=== PATIENT | male | born 1950 | race Caucasian/White ===

== ENCOUNTER → 2021-08-11 14:21 | Outpatient (CLI) | payer MEDICARE, SELFPAY ==
--- NOTE | ~2021-08-11 | MR_ITS ---
EXAMINATION: MR lumbar spine wo con DATE: 08/11/2021 15:03 INDICATION: Chronic lumbar radiculopathy. Low back pain. TECHNIQUE: Magnetic resonance imaging (MRI) of the lumbar spine was performed without intravenous con trast. Sequences included sagittal T2-weighted FSE, sagittal T2-weighted FS FSE, sagittal T1-weighted FSE, and axial T2-weighted FSE. COMPARISON: None FINDINGS: There is 6 degrees dextrocurvature of lumbar spine. Vertebral body heights are normal. Ther e is mildly decreased disc height at L3-L4 and L5-S1. The distal spinal cord signal intensity is norm al. The conus medullaris is at L1. There is a 2.6 cm cyst in right kidney. There is a 3.3 cm fusiform infrarenal aortic aneurysm. The following disc levels are specifically discussed: L1-L2: The disc does not extend beyond the endplate margin. There is no facet joint osteoarthritis. T here is no neural foraminal stenosis. There is no central canal stenosis. L2-L3: The disc is mildly bulging. There is no facet joint osteoarthritis. There is mild left neural foraminal stenosis. There is mild central canal stenosis. L3-L4: The disc is bulging with superimposed left subarticular and foraminal zone extrusion with mass effect on left L4 nerve root in left lateral recess. There is severe bilateral facet joint osteoarth ritis. There is mild right and moderate left neural foraminal stenosis. There is mild central canal s tenosis. There is moderate stenosis of left lateral recess. L4-L5: The disc is bulging and has an annular fissure. There is severe bilateral facet joint osteoart hritis. There is mild right and moderate left neural foraminal stenosis. There is mild central canal stenosis. L5-S1: The disc is bulging and has an annular fissure. There is moderate bilateral facet joint osteoa rthritis. There is moderate bilateral neural foraminal stenosis. There is mild central canal stenosis . IMPRESSION: 1. Moderate lumbar spondylosis. Of note, an extrusion at L3-L4 exerts mass effect on left L4 nerve ro ot. 2. 3.3 cm fusiform infrarenal aortic aneurysm. Reviewed, dictated and finalized at location A. [employer] IMPRESSION: 1. Moderate lumbar spondylosis. Of note, an extrusion at L3-L4 exerts mass effe ct on left L4 nerve root. 2. 3.3 cm fusiform infrarenal aortic aneurysm.
== END ==
PROVIDERS: PCP Internal Medicine
DX: M54.16 Radiculopathy, lumbar region (principal); G89.4 Chronic pain syndrome; M51.9 Unspecified thoracic, thoracolumbar and lumbosacral intervertebral disc disorder; M47.816 Spondylosis without myelopathy or radiculopathy, lumbar region; I71.9 Aortic aneurysm of unspecified site, without rupture
CPT/HCPCS: 72148

== ENCOUNTER 2022-01-14 11:18 | Emergency (ER) | payer MEDICARE, SELFPAY ==
[2022-01-14] VITALS (13 sets, daily range): BP systolic 88–116; BP diastolic 61–82; PULSE 59–71; RESP 12–22; TEMP 36.6; O2SAT 83–98
--- NOTE | 2022-01-14 11:19 | ECG_ITS ---
Measurements Intervals [place] Rate: 65 P: -8 AR: 146 QRS: -46 QRSD: 88 T: 29 QT: 411 QTc: 428 Interpretive Statements SINUS RHYTHM WITH OCCASIONAL VENTRICULAR PREMATURE COMPLEXES LEFT AXIS DEVIATION NONSPECIFIC T-WAVE ABNORMALITY ABNORMAL ECG Electronically Signed On 01-14-2022 15:57:23 CDT by Inocencio Soliman M.D.
[2022-01-14 11:39] LABS: Basophils Absolute Auto 0.1 K/mm3 (0.0-0.1); Eosinophils Absolute Auto 0.6 K/mm3 (0-0.3); Eosinophils Percent Auto 5.1 % (0-4.4); Hematocrit 42.6 % (42.0-52.0); Hemoglobin 14.2 g/dL (14.0-18.0); Immature Granulocyte Absolute 0.05 K/mm3 (0.00-0.031); Immature Granulocyte Percent A 0.5 % (0-0.5); Lymphocytes Percent Auto 24.4 % (18.3-44.2); Mean Corpuscular HGB Conc 33.3 g/dl (32-36); Mean Corpuscular Hemoglobin 34.6 pg (26-34); Mean Corpuscular Volume 103.9 fl (80-100); Mean Platelet Volume 11.3 fl (7.4-10.4); Monocytes Absolute Auto 0.6 K/mm3 (0.1-0.6); Monocytes Percent Auto 5.2 % (2.6-8.5); Neutrophils Absolute Auto 7.1 K/mm3 (1.3-6.7); Neutrophils Percent Auto 63.8 % (45.5-73.1); Platelet Count Result 219 k/mm3 (150-375); Red Cell Distribution Width 13.6 % (11.5-14.5); White Blood Count 11.1 K/mm3 (4.5-10.0)
[2022-01-14 11:50] LABS: Alanine Aminotransferase 10 U/L (4-50); Albumin Level 4.2 g/dL (3.5-5.1); Alkaline Phosphatase 47 U/L (38-126); Anion Gap 9 mmol/L (8-16); Aspartate Amino Transferase 28 U/L (17-59); Bilirubin,Total 0.6 mg/dL (0.2-1.3); Blood Urea Nitrogen 17 mg/dL (9-20); Calcium 8.2 mg/dL (8.4-10.2); Carbon Dioxide 24 mmol/L (22-30); Chloride 102 mmol/L (98-107); Estimated CRCL calculation 48 ml/min; Estimated Glomerular Filt Rate 55; Glucose 285 mg/dL (65-110); Potassium 4.2 mmol/L (3.4-5.0); Sodium 135 mmol/L (137-145)
--- NOTE | 2022-01-14 12:31 | ED.GENADULT ---
HPI - General Adult General Chief complaint: Syncope Stated complaint: syncopal events Time Seen by Provider: 01/14/22 11:58 Source: patient and RN notes reviewed Mode of arrival: wheelchair Limitations: no limitations History of Present Illness HPI narrative: Patient is 71 years old white male brought to the emergency room from the gastroenterology office because of near syncope. Patient complaining of diarrhea since March 04, 2021 on average 1-2 large watery stool a day. Patient was seen by his family physician numerous of time for the same problem without specific diagnosis. Patient reports having low blood pressure, systolic less than 90, diastolic less than 60 for over 2 years without specific diagnosis. Patient reports getting feeling of dizziness, lightheadedness and possible going to pass out off and on for the last 2 years mainly on standing or when he gets up from sitting position. Today in the gastroenterology office got up to go to the nurse and fell like he was going to pass out. Patient denies any chest pain, shortness of breath, nausea, vomiting, back pain, headache. Patient reports what happened today exactly what been going on off and on for the last 2 years currently his main complaint is the diarrhea. When I saw the patient in the room his blood pressure was 88/65, at the end of my examination was 102/67. Patient is telling me that 102/67 consider high for him Related Data Home Medications Medication Instructions Recorded Confirmed amitriptyline 10 mg tablet 10 mg PO QHS 06/05/21 07/17/21 aspirin 81 mg tablet,delayed 81 mg PO DAILY 06/05/21 07/17/21 release clonazepam 1 mg tablet 2 mg PO DAILY tablet 06/05/21 07/17/21 coenzyme Q10 30 mg capsule 30 mg PO DAILY 06/05/21 07/17/21 folic acid-vit B6-vit B12 2.5 1 tablet PO DAILY 06/05/21 07/17/21 mg-25 mg-2 mg tablet glyburide 2.5 mg-metformin 500 mg 1 tablet PO BID 06/05/21 07/17/21 tablet oxycodone-acetaminophen 10 mg-325 6 tablet PO Q4-6H tablet 06/05/21 07/17/21 mg tablet simvastatin 40 mg tablet 40 mg PO DAILY 06/05/21 07/17/21 methadone 10 mg tablet 20 mg PO Q12H tablet 06/20/21 07/17/21 Allergies Allergy/AdvReac Type Severity Reaction Status Date / Time midazolam Allergy Severe Hives / Verified 01/14/22 11:31 Red Face Review of Systems Review of Systems: CONSTITUTIONAL: Denies fever, chills, or sweats. EYES: Denies visual changes, redness, or discharge. ENT: Denies rhinorrhea, congestion, sore throat, or otalgia. CARDIOVASCULAR: Denies chest pain, palpitations, or edema. RESPIRATORY: Denies cough or dyspnea. GASTROINTESTINAL: Denies abdominal pain, nausea, vomiting, or diarrhea. GENITOURINARY: Denies dysuria or hematuria. SKIN: Denies rash or itching. MUSCULOSKELETAL: Denies back pain, joint pain, or myalgia. NEUROLOGIC: Denies headache, numbness, or weakness. PSYCHIATRIC: Denies anxiety or depression. PMFSH Past Medical History Medical History Tobacco abuse Social History Social History Smoking status: Current every day smoker Tobacco type: cigarettes Second hand tobacco smoke exposure: Yes Exam Narrative: General appearance: Well-developed, well-nourished Skin: Normal color Head: Normocephalic, nontraumatic Eyes: Clear conjunctiva ENT: Oropharynx normal, ears normal, nose normal Neck: Supple, nontender Chest and respiratory: Airway patent, no respiratory distress, no accessory muscle use Heart: Regular rate/rhythm Abdomen: Soft, nontender, no organomegaly, quiet bowel sounds Vascular: Normal peripheral pulses, normal capillary refill. Musculoskeletal: Normal range of motion, nontender back Neurologic: Alert and oriented ?3, NUT SHELLER is normal as tested, no gross motor deficit
[2022-01-14] MEDS: SODIUM CHLORIDE 0.9% IV 1,000 ML 999 ML IV CONT (12:37)
== END 2022-01-14 14:38 | disposition home or self-care (01) ==
PROVIDERS: General Practice; Emergency Provider Emergency Medicine; PCP Internal Medicine
DX: I95.1 Orthostatic hypotension (principal); F17.210 Nicotine dependence, cigarettes, uncomplicated; Z79.82 Long term (current) use of aspirin; I49.3 Ventricular premature depolarization
CPT/HCPCS: 36415; 80053; 85025; 93005; 96360; 99284; J7030

== ENCOUNTER 2022-03-30 20:30 | Inpatient (IN) | payer MEDICARE, SELFPAY ==
--- NOTE | ~2022-03-30 | NM_ITS ---
EXAMINATION: NM mally stress w perfusion DATE: 04/01/2022 13:26 INDICATION: Chest pain TECHNIQUE: Rest images were obtained following intravenous administration of 10.1 mCi Tc99m tetrofosm in (Myoview). The patient was infused intravenously with Lexiscan (Regadenoson). Then, 22.1 mCi Tc99m tetrofosmin (Myoview) was administered intravenously, and stress images were obtained. Data was christina nstructed into short axis and horizontal and vertical long axis SPECT images. Gated SPECT images were also obtained. COMPARISON: None. FINDINGS: There is no definite reversible or fixed perfusion abnormality to suggest ischemia or infar ction. There is normal left ventricular chamber size and wall motion with borderline left ventricula r ejection fraction measuring 44%. IMPRESSION: 1. Normal myocardial perfusion at rest and during stress. 2. Borderline left ventricular ejection fraction measuring 44%. Reviewed, dictated and finalized at location A.
--- NOTE | ~2022-03-30 | CT_ITS ---
EXAMINATION: CTA chest abdomen DATE: 03/30/2022 21:44 INDICATION: R/O Dissection . TECHNIQUE: Computed tomography (CT) of the chest and abdomen was performed in the angiographic phase, with 100 mL Omnipaque-300 intravenous contrast. 3-D post processed images were created by the techno logist on a separate workstation. Automated exposure control and iterative reconstruction technique w ere employed. The dose-length product was 438.41 mGy-cm. COMPARISON: CT abdomen and pelvis 11/03/2013. FINDINGS: Thoracic aorta: Moderate arch calcification. No significant dilation or dissection.. Lung parenchyma and airways: Dependent right basilar ground glass opacities, likely representing atel ectasis. Mild emphysematous change. Thoracic inlet, axillae and chest wall: No thyroid or soft tissue mass. No axillary lymphadenopathy. Mediastinum: No mass or lymphadenopathy. Heart and pericardium: Normal heart size. No pericardial effusion. Coronary artery calcifications: Moderate. Pleura: No effusion or mass. Thoracic bones: No acute osseous finding in the chest. ABDOMEN/PELVIS: Liver: Somewhat heterogeneous, with wedge-shaped areas of hyperenhancement likely transient arterial differences. Intrahepatic biliary duct dilation. Intrabiliary gas predominantly in the left lobe. Biliary/Gallbladder: Mildly dilated, with mild wall hyperemia. No stones. 13 mm common bile duct, wit h mucosal enhancement. Pancreas: Atrophic, without mass or duct dilation. Spleen: Normal. Adrenals:Bilateral adrenal adenomas. Kidneys: Simple left renal cysts. Bilateral subcentimeter hypodensities that are too small to charact erize but also likely represent cysts. No suspicious mass or hydronephrosis. GI tract: No small or large bowel dilation. Mesentery/Peritoneum: No ascites, mass, or free air. Retroperitoneum: No mass. Atherosclerotic abdominal aortic and/or arterial calcifications, with moder ate calcifications at the origins of all major abdominal aortic branch vessels. Fusiform dilation of the aorta measuring up to 3.9 cm in maximum transverse diameter. Intramural thrombus. Dilated common iliac arteries measuring 1.9 cm on the left and 1.9 cm on the right. Soft Tissues: Soft tissues and body wall unremarkable. Abdominopelvic bones: No acute osseous finding in the abdomen/pelvis. IMPRESSION: No evidence dissection. Intra-/extrahepatic biliary duct dilation, pneumobilia, with gallbladder hydr ops, and biliary wall hyperemia which may represent ascending cholangitis in the appropriate clinical context. No obstructing biliary stone or mass detected. 3.9 cm abdominal aortic aneurysm, consider f ollow-up in 2 years to evaluate for size change. Reviewed, dictated and finalized at location K. IMPRESSION: No evidence dissection. Intra-/extrahepatic biliary duct dilation, pneumobilia, with gallbladder hydrops, and biliary wall hyperemia which may represent ascen ding cholangitis in the appropriate clinical context. No obstructing biliary st one or mass detected. 3.9 cm abdominal aortic aneurysm, consider follow-up in 2 years to evaluate for size change.
--- NOTE | ~2022-03-30 | XR_ITS ---
EXAMINATION: XR ERCP DATE: 04/03/2022 12:17 INDICATION: Choledocholithiasis TECHNIQUE: Four intraoperative fluoroscopic images obtained during endoscopic retrograde cholangiopan creatography (ERCP) are submitted for review. Total fluoroscopic time was 70.3 seconds. COMPARISON: None. FINDINGS: Fluoroscopic images demonstrate retrograde opacification of the common bile duct with mild extrahepatic biliary dilatation. IMPRESSION: 1. Mild biliary dilatation. Please refer to the ERCP procedure note for additional details. Reviewed, dictated and finalized at location F. IMPRESSION: 1. Mild biliary dilatation. Please refer to the ERCP procedure note for additio nal details.
--- NOTE | ~2022-03-30 | US_ITS ---
EXAMINATION: US abdomen limited DATE: 03/31/2022 16:08 INDICATION: Gallbladder and biliary distention TECHNIQUE: Multiple grayscale and Doppler ultrasound images of the abdomen were obtained. COMPARISON: CT from yesterday FINDINGS: Bowel gas obscures visualization of the pancreas. The liver is normal with normal echogenic ity and echotexture. No surface nodularity. Normal hepatopetal flow in the main portal vein. There is sludge in the gallbladder. The gallbladder is mildly distended. There is no pericholecystic fluid. T he dilated common bile duct measures 8 mm. Sonographic Palafox sign is positive. IMPRESSION: 1. Gallbladder sludge with gallbladder distention and positive sonographic Palafox sign without perich olecystic fluid. Findings are suggestive of cholecystitis. 2. Enlargement of the common bile duct of unclear etiology. Consider MRCP or ERCP. Reviewed, dictated and finalized at location A. IMPRESSION: 1. Gallbladder sludge with gallbladder distention and positive sonographic Murp hy sign without pericholecystic fluid. Findings are suggestive of cholecystitis . 2. Enlargement of the common bile duct of unclear etiology. Consider MRCP or ER CP.
--- NOTE | ~2022-03-30 | US_ITS ---
US renal BI 04/02/2022 10:51 Procedure: Realtime transabdominal ultrasound of the kidneys and bladder. Indication: Renal failure Comparison: No prior studies for comparison. Findings: Renal echotexture is normal bilaterally without hydronephrosis, contour deforming mass or r enal calculus. The right kidney measures 10.9 cm and left kidney measures 10.8 cm. There is a right r enal cyst measuring 3.9 cm. Bladder within normal limits. Impression: 1: Right renal cyst measuring 3.9 cm. Reviewed, dictated and finalized at location A. Impression: 1: Right renal cyst measuring 3.9 cm.
--- NOTE | ~2022-03-30 | MR_ITS ---
EXAMINATION: MR MRCP wo con/w 3D wo ind pp DATE: 04/02/2022 10:03 INDICATION: Dilated bile ducts on CT . Cholecystitis. TECHNIQUE: Magnetic resonance imaging (MRI) of the abdomen was performed without intravenous contrast . Sequences included coronal T2-weighted SS-FSE, coronal T2-weighted FS SS-FSE, coronal T2-weighted F S FIESTA, axial T2-weighted FS FIESTA, axial T2-weighted FIESTA, sagittal T2-weighted SS-FSE, axial T 1-weighted dual-echo FSPGR, axial T2-weighted SS-FSE, axial T1-weighted LAVA, axial T2-weighted STIR FSE. Thick-slab T2-weighted FRFSE-XL images were obtained for magnetic resonance cholangiopancreatogr aphy (MRCP). Rotating maximum intensity projection 3-D reconstructions of the volumetric data were cr eated by the technologist. COMPARISON: CT dated 03/25/2022 FINDINGS: Consolidation in the dependent right lower lobe with additional more linear bands of discoid atelecta sis/scarring in the dependent left lower lobe. Heart size is normal. No pericardial or pleural effusi on. There is prominent wall thickening of the sludge-filled gallbladder with prominent pericholecystic so ft tissue edema consistent with acute cholecystitis. There is mild dilation of the common bile duct w hich measures up to 8 mm in maximal diameter. There is a 3-4 mm gallstone in the distalmost common bi le duct. There are a couple additional similar sized filling defects in the proximal common bile duct which appear different positions on appearing sequences suggesting additional mobile small gallstone s. There is mild intrahepatic biliary ductal dilation with left hepatic lobe predominance. There is a lso diffuse periportal edema likely related to acute cholecystitis. Pancreas is normal with normal ca liber main pancreatic duct. Spleen and bilateral adrenal glands are normal. Bilateral T2 hyperintense renal cysts the largest on the right measuring 2.6 cm. Visualized portion of the bowels are unremark able with no dilated bowel to suggest obstruction. No pathologically enlarged abdominal lymphadenopat hy. Retroperitoneal edema, right greater than left. Ectatic infrarenal abdominal aorta measuring up t o 3.4 cm in maximal diameter. Mild thoracic and lumbar spondylosis. Normal bone marrow signal through out. IMPRESSION: 1. Choledocholithiasis including 3-4 mm stone at the distalmost common bile duct with mild intra and extra hepatic biliary ductal dilation. Consider ERCP. 2. Acute cholecystitis. 3. Consolidation in the right lower lobe which could represent atelectasis or pneumonia. 4. Ectatic infrarenal abdominal aorta measuring up to 3.4 cm in maximal diameter. Reviewed, dictated and finalized at location A. IMPRESSION: 1. Choledocholithiasis including 3-4 mm stone at the distalmost common bile thomas t with mild intra and extra hepatic biliary ductal dilation. Consider ERCP. 2. Acute cholecystitis. 3. Consolidation in the right lower lobe which could represent atelectasis or p neumonia. 4. Ectatic infrarenal abdominal aorta measuring up to 3.4 cm in maximal diamete r.
[2022-03-30 20:29] VITALS: BP 192/98; PULSE 71; RESP 20; TEMP 37; O2SAT 95
--- NOTE | 2022-03-30 20:45 | ED.GENADULT ---
HPI - General Adult General Chief complaint: Chest Pain Stated complaint: chest pain Time Seen by Provider: 03/30/22 20:31 History of Present Illness HPI narrative: 72-year-old male presenting to the emergency department for evaluation of cute onset of substernal chest pain. Patient states he was at rest prior to arrival when he had onset of chest pain. Patient does admit that he had a very stressful day and at the stressful events may have contributed to his chest pain. Patient denies any radiation of pain to his neck or back. Patient denies prior history of SC. Patient denies any associated nausea vomiting diarrhea or shortness of breath. Patient does have history of gastric reflux disease. Patient states this pain does not feel similar. Patient denies any prior history of SC. Patient did have a stress test a few years ago. Patient does have a prior history of CVA. Patient is a smoker and does have history of hypertension. Related Data Home Medications Medication Instructions Recorded Confirmed amitriptyline 10 mg tablet 10 mg PO QHS 06/05/21 03/31/22 aspirin 81 mg tablet,delayed 81 mg PO DAILY 06/05/21 03/31/22 release clonazepam 1 mg tablet (Klonopin) 2 mg PO DAILY 06/05/21 03/31/22 coenzyme Q10 30 mg capsule (Co 30 mg PO DAILY 06/05/21 03/31/22 Q-10) folic acid-vit B6-vit B12 2.5 1 tablet PO DAILY 06/05/21 03/31/22 mg-25 mg-2 mg tablet (Folbic) glyburide 2.5 mg-metformin 500 mg 1 tablet PO DAILY 06/05/21 03/31/22 tablet oxycodone-acetaminophen 10 mg-325 1 tablet PO Q4-6H 06/05/21 03/31/22 mg tablet simvastatin 40 mg tablet 40 mg PO DAILY 06/05/21 03/31/22 methadone 10 mg tablet 20 mg PO Q12H 06/20/21 03/31/22 Allergies Allergy/AdvReac Type Severity Reaction Status Date / Time midazolam Allergy Severe Hives / Verified 03/30/22 20:36 Red Face Review of Systems Review of Systems: CONSTITUTIONAL: Denies fever, chills, or sweats. EYES: Denies visual changes, redness, or discharge. ENT: Denies rhinorrhea, congestion, sore throat, or otalgia. CARDIOVASCULAR: See HPI RESPIRATORY: Denies cough or dyspnea. GASTROINTESTINAL: Denies abdominal pain, nausea, vomiting, or diarrhea. GENITOURINARY: Denies dysuria or hematuria. SKIN: Denies rash or itching. MUSCULOSKELETAL: Denies back pain, joint pain, or myalgia. NEUROLOGIC: Denies headache, numbness, or weakness. 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 HEAD: normocephalic, atraumatic. EYES: PERRLA/EOMI, conjunctivae clear. NOSE: Normal no drainage THROAT: Pharynx clear, no exudate. NECK: Supple. No adenopathy, no masses. RESPIRATORY: Airway patent, respirations nonlabored. Clear to auscultation bilaterally, no rales, rhonchi, wheezing. CARDIOVASCULAR: Regular rate and rhythm without murmurs rubs or gallops. No reducible chest wall pain to the palpation ABDOMINAL: Soft, nontender, nondistended, normal bowel sounds. Really no right upper quadrant or epigastric tenderness to palpation. MUSCULOSKELETAL: Moves all extremities. Strength/ROM intact, No edema, No calf tenderness. NEURO: Alert. Cranial nerves II through XII intact. Grossly intact SKIN: Warm, dry. N
[2022-03-30] MEDS: ASPIRIN 81 MG CHEWABLE TABLET 324 MG PO (20:46)
[2022-03-30] MEDS: MORPHINE SULFATE (*CRX) 4 MG/ML INJ IV PUSH (20:46)
[2022-03-30 20:59] LABS: Basophils Absolute Auto 0.1 K/mm3 (0.0-0.1); Basophils Percent Auto 0.7 % (0.2-1.2); Eosinophils Absolute Auto 0.6 K/mm3 (0-0.3); Eosinophils Percent Auto 4.2 % (0-4.4); Hematocrit 42.3 % (42.0-52.0); Hemoglobin 13.9 g/dL (14.0-18.0); Immature Granulocyte Absolute 0.03 K/mm3 (0.00-0.031); Immature Granulocyte Percent A 0.2 % (0-0.5); Lymphocytes Absolute Auto 3.84 K/mm3 (0.9-3.2); Lymphocytes Percent Auto 27.6 % (18.3-44.2); Mean Corpuscular HGB Conc 32.9 g/dl (32-36); Mean Corpuscular Hemoglobin 33.4 pg (26-34); Mean Corpuscular Volume 101.7 fl (80-100); Mean Platelet Volume 11.1 fl (7.4-10.4); Monocytes Absolute Auto 1.3 K/mm3 (0.1-0.6); Neutrophils Absolute Auto 8.1 K/mm3 (1.3-6.7); Neutrophils Percent Auto 58.3 % (45.5-73.1); Platelet Count Result 194 k/mm3 (150-375); Red Blood Count 4.16 M/mm3 (4.6-6.20); Red Cell Distribution Width 13.2 % (11.5-14.5); White Blood Count 13.9 K/mm3 (4.5-10.0)
--- NOTE | 2022-03-30 21:06 | ECG_ITS ---
Measurements Intervals [place] Rate: 65 P: 61 MA: 193 QRS: -41 QRSD: 86 T: 76 QT: 395 QTc: 413 Interpretive Statements SINUS RHYTHM LEFT AXIS DEVIATION SEPTAL MYOCARDIAL INFARCTION , OF INDETERMINATE AGE Electronically Signed On 03-31-2022 10:52:25 CDT by Ed Gomez M.D.
[2022-03-30 21:07] VITALS: PULSE 68
[2022-03-30 21:10] LABS: INR 1.1; Partial Thromboplastin Time 34.8 SECONDS (22.3-36.8); Prothrombin Time 13.5 Seconds (11.1-14.7)
[2022-03-30 21:22] LABS: Alanine Aminotransferase 8 U/L (6-50); Albumin Level 4.6 g/dL (3.5-5.1); Alkaline Phosphatase 52 U/L (38-126); Anion Gap 6 mmol/L (8-16); Aspartate Amino Transferase 29 U/L (17-59); Bilirubin,Total 0.4 mg/dL (0.2-1.3); Blood Urea Nitrogen 23 mg/dL (9-20); Calcium 9.2 mg/dL (8.4-10.2); Carbon Dioxide 31 mmol/L (22-30); Chloride 100 mmol/L (98-107); Estimated CRCL calculation 53 ml/min; Estimated Glomerular Filt Rate 60; Glucose 168 mg/dL (65-110); Lipase 249 U/L (23-300); Potassium 4.4 mmol/L (3.4-5.0); Sodium 137 mmol/L (137-145)
[2022-03-30 21:26] LABS: Troponin I 0.025 ng/mL (0.000-0.034)
[2022-03-30 22:41] VITALS: BP 108/68; PULSE 67; RESP 18; O2SAT 94
[2022-03-31] VITALS (19 sets, daily range): BP systolic 90–169; BP diastolic 62–97; PULSE 55–81; RESP 12–20; TEMP 36.6–36.9; O2SAT 93–99
--- NOTE | 2022-03-31 | ECHO_ITS ---
Patient Info Name: Julius Flores Age: 72 years : 1950 Gender: Male Ht: 74 in Wt: 156 lbs BSA: 1.91 m2 HR: 84 bpm BP: 157 / 93 mmHg Heart Rhythm: Sinus Rhythm Technical Quality: Fair Exam Date: 03/31/2022 10:44 AM Exam Location: [facility] Patient Status: Inpatient Admit Date: 03/31/2022 Staff Ordering Physician: Orlando Rodriguez DO [place] Assistant: Araceli Jensen RDCS Attending Provider: Colin Bynum MD Referring Physician: Michael MOJICA; Exam Type: CA echo doppler color flow Study Info Indications - cp Complete two-dimensional, color flow and Doppler transthoracic echocardiogram is performed. Summary 1. Complete two-dimensional, color flow and Doppler transthoracic echocardiogram is performed. 2. Left ventricular chamber dimension is normal. 3. Left ventricular systolic function is normal, estimated at 60-65%. 4. There is mildly increased left ventricular wall thickness. 5. The left ventricular diastolic function is grade I diastolic dysfunction. 6. E/e' 4 is not elevated. 7. There is mild aortic valve sclerosis. 8. There is mild to moderate mitral valve regurgitation. 9. There is trace tricuspid valve regurgitation. 10. No pulmonary hypertension, estimated pulmonary arterial systolic pressure is 11 mmHg. Left Ventricle E/e' 4 is not elevated. Left ventricular chamber dimension is normal. Left ventricular systolic function is normal, estimated at 60-65%. There is mildly increased left ventricular wall thickness. The left ventricular diastolic function is grade I diastolic dysfunction. Right Ventricle Right ventricular systolic function is normal and with normal TAPSE 2.0 cm. Right ventricular chamber dimension is normal. Left Atria Left atrial chamber dimension is normal. Right Atria Right atrial chamber dimension is normal. Aortic Valve The aortic valve is probable trileaflet. There is mild aortic valve sclerosis. There is no aortic valve stenosis. There is no aortic valve regurgitation. Pulmonic Valve There is no pulmonic regurgitation. Mitral Valve There is no mitral valve stenosis. There is mild to moderate mitral valve regurgitation. Tricuspid Valve There is trace tricuspid valve regurgitation. No pulmonary hypertension, estimated pulmonary arterial systolic pressure is 11 mmHg. Pericardium/Pleural There is no pericardial effusion. Inferior Vena Cava Normal inferior vena cava with >50% collapse upon inspiration consistent with normal right atrial pressure, 5 mmHg. Aorta The aortic root size at the sinus of Valsalva is normal. Left Ventricular Outflow Tract Name Value Normal LVOT 2D LVOT Diameter 2.0 cm LVOT Doppler LVOT Peak Gradient 3 mmHg LVOT Mean Gradient 2 mmHg LVOT VTI 18 cm LVOT VTI/AV VTI Ratio 0.7 LVOT Stroke Volume 57 ml LVOT CO 3.4 l/min LVOT CI 1.8 l/min/m2 Pulmonic Valve
[2022-03-31 00:17] LABS: Troponin I 0.071 ng/mL (0.000-0.034)
[2022-03-31 01:24] LABS: Glucose Point of Care 178 mg/dl (65-105)
[2022-03-31] MEDS: SODIUM CHLORIDE 0.9% IV 1,000 ML 999 ML IV CONT (01:30)
[2022-03-31] MEDS: ENOXAPARIN 80 MG/0.8 ML SYRINGE 74 MG SUB-Q (03:33)
[2022-03-31 03:35] LABS: Troponin I 0.082 ng/mL (0.000-0.034)
[2022-03-31 03:48] LABS: Appearance Urine Clear (Clear); Bilirubin Urine Negative (Negative); Blood Urine Negative (Negative); Color Urine Yellow (Yellow); Glucose Urine UA Negative (Negative); Ketones Urine Negative (Negative); Leukocyte Esterase Ur Negative LEU/UL (Negative); Nitrate Urine Negative (Negative); Protein Urine Negative (Negative); Urobilinogen Urine 0.2 mg/dL (<2.0)
[2022-03-31 03:54] LABS: Add Urine Microscopic? NO
--- NOTE | 2022-03-31 04:12 | ADMGEN ---
This patient, Julius Flores, was admitted to IMU Room 206-02. Patient/family oriented to hospital policies and general routines including ID bracelet, bed and alarms, visiting hours, pain management, procedures, bathroom and other care routines, personal items, smoking policy, room service/diet, and visiting hours. Information on how to activate the Rapid Response Team has been discussed. Patient/Family are encouraged to report perceived risks to care and to ask questions if they do not understand what they are told or what they should do.
[2022-03-31] MEDS: MORPHINE SULFATE (*CRX) 4 MG/ML INJ IV PUSH ×4 (04:28→20:49)
[2022-03-31] MEDS: NITROGLYCERIN SL 0.4 MG TABLET SUBLINGUAL ×3 (05:58→06:12)
--- NOTE | 2022-03-31 06:11 | ECG_ITS ---
Measurements Intervals [place] Rate: 59 P: 37 [place]: 152 QRS: -51 QRSD: 95 T: 66 QT: 375 QTc: 372 Interpretive Statements SINUS BRADYCARDIA WITH MARKED SINUS ARRHYTHMIA PVC INCOMPLETE RIGHT BUNDLE BRANCH BLOCK LEFT ANTERIOR FASCICULAR BLOCK Electronically Signed On 03-31-2022 10:55:45 CDT by Ed Gomez M.D.
[2022-03-31] MEDS: oxyCODONE/ACETAMINOPHEN (*CRX) 5-325 MG TABLET 2 TABLET PO (06:41)
--- NOTE | 2022-03-31 06:48 | PC.NURSE ---
0620 Patient states c/o midsternal chest pain without radiation. Sublingual nitro administered x 3 without pain relief noted. EKG obtained. Dr Reeves made aware and reviewed current EKG. Charge nurse notified.
--- NOTE | 2022-03-31 08:06 | PM.CNCAR ---
Assessment and Plan Assessment and plan (1) Chest pain: Code(s): R07.9 - Chest pain, unspecified Status: Acute Assessment and Plan: Somewhat atypical CP under a lot of stress, but with multiple risk factors including stroke s/p Right CEA, DM, smoking, dyslipidemia. Troponin mildly elevated and trending up currently at .082. EKG shows no acute ST abnormalities, cannot r/o septal infarct and inferior infarct, age indeterminate. Obtain echo. On aspirin, received a dose of Lovenox 03:15, on Simvastatin. (2) Diabetes: Code(s): E11.9 - Type 2 diabetes mellitus without complications Status: Acute Assessment and Plan: Managed by PCP. (3) Dyslipidemia: Code(s): E78.5 - Hyperlipidemia, unspecified Status: Acute Assessment and Plan: On Simvastatin. (4) Smoking: Code(s): F17.200 - Nicotine dependence, unspecified, uncomplicated Status: Acute Assessment and Plan: Counseled regarding smoking cessation.n (5) Elevated troponin: Code(s): R77.8 - Other specified abnormalities of plasma proteins Status: Acute Assessment and Plan: Trend troponin to peak. CT abd shows dilated biliary ducts with possible ascending cholangitis. Needs further workup by hospitalist. History of Present Illness History of Present Illness Consult date/time: 03/31/22 08:06 Requesting physician: Len Santiago MD Consult reason: chest pain Reason For Visit: NSTEMI Narrative: 72 yr old man presents to ER last night for chest pain. He has a history of CVA s/p right CEA in 2001, AAA, DM, dyslipidemia, smoking 1 ppd. Reports in last 2 days he is under a lot stress from family members injuries/illnesses. Then last evening while watching tv he had abrupt onset mid epigastric/lower chest pain that is constant and having it now. He also has chronic lower back pain for which he takes Oxycodone-acetaminophen.He can walk only 1/2 block limited by back pain and fatigue. EKG did not show any acute changes and troponin increased mildly to .082. CT abd shows biliary duct dilation with possible ascending cholangitis. Review of Systems Review of Systems: All systems reviewed & are unremarkable except as noted in HPI and below Constitutional: Constitutional: Reports as per HPI, Denies chills and Denies fever(s) Cardiovascular: Cardiovascular: Reports as per HPI, Reports chest pain, Denies irregular heart rhythm, Denies leg edema and Reports lightheadedness Respiratory: Respiratory: Reports as per HPI and Denies dyspnea Gastrointestinal: Gastrointestinal: Reports as per HPI and Denies abdominal pain Genitourinary: Genitourinary: Reports as per HPI and Denies dysuria Musculoskeletal: Musculoskeletal: Reports as per HPI and Reports back pain Neurologic: Reports as per HPI, Reports dizziness and Denies syncope [facility] Past Medical History Medical History Tobacco abuse Family History Family History (Updated 03/31/22 @ 04:16 by Clare Braga RN) Mother Hodgkins disease Father Hypertension Sibling Congestive heart failure Social History Social History Smoking packs per day: 1 Smoking cigarettes per day: 20.0 Years smoked: 50 Smoking pack-years: 50.00 Smoking status: Current every day smoker Tobacco type: cigarettes Second hand tobacco smoke exposure: Yes Alcohol intake: never Substance use: current Substance use type: prescription drug Other substance usage details: oxycodone 10/325 , methadone Spiritual care concerns: No Meds Home Medications and Allergies Home Medications Medication Instructions Recorded Confirmed Type amitriptyline 10 mg tablet 10 mg PO QHS 06/05/21 03/31/22 History aspirin 81 mg tablet,delayed 81 mg PO DAILY 06/05/21 03/31/22 History release clonazepam 1 mg tablet (Klonopin) 2 mg PO DAILY 06/05/21
--- NOTE | 2022-03-31 08:40 | PM.CNCAR ---
Assessment and Plan Assessment and plan (1) Elevated troponin: Code(s): R77.8 - Other specified abnormalities of plasma proteins Status: Acute Assessment and Plan: 72-year-old male with diabetes mellitus, dyslipidemia, history of CVA status post right CEA in 2001, AAA, tobacco abuse. Patient admitted to the hospital with complaints of epigastric pain. EKG shows sinus rhythm, left anterior fascicular block; no acute ST segment abnormality. Troponins are minimally elevated. CT scan of the abdomen and pelvis suggestive of cholangitis. Patient has known vascular disease involving carotid arteries and abdominal aorta; and has multiple risk factors including diabetes mellitus, dyslipidemia, and ongoing tobacco abuse. He likely has coronary artery disease, however, his current clinical presentation with complaints of epigastric chest discomfort are somewhat atypical for myocardial ischemia. Also given CT scan results suggestive of cholangitis, at this time would recommend evaluation of what appears to be noncardiac epigastric pain. Consider myocardial perfusion scan to check for any significant myocardial ischemia. Would proceed with invasive ischemic evaluation based on clinical course and/or if myocardial perfusion imaging is significantly abnormal. Continue aspirin and statin. The plan was discussed with the patient and referring physician-Dr. Rodriguez. (2) Tobacco abuse: Code(s): Z72.0 - Tobacco use Status: Acute Assessment and Plan: Smoking cessation counseling was done. History of Present Illness History of Present Illness Consult date/time: 03/31/22 08:40 Requesting physician: Orlando Rodriguez DO Consult reason: Other (Cardiac catheterization) Reason For Visit: NSTEMI Narrative: DATE OF CONSULT: 03/31/2022 REASON FOR CONSULT: Cardiac catheterization REQUESTING PHYSICIAN: CHIEF COMPLAINT: Upper abdominal pain HPI: 72-year-old male with diabetes mellitus, dyslipidemia, history of CVA status post right CEA in 2001, AAA, tobacco abuse. Patient presented to [facility] Emergency Room on 03/30/2022 with complaints of epigastric pain. Patient states that he has chronic back pain and takes pain medications at home. However, yesterday, he had epigastric discomfort which he described as squeezing sensation, localized. He denied associated symptoms of shortness of breath, palpitations, dizziness or syncope. He denied any nausea or vomiting. However, patient states that he has chronic constipation. Patient denies any known prior cardiac history including clinical MN, angina, heart failure or any known arrhythmias. EKG on my personal evaluation showed sinus rhythm, leftward axis. Subsequent EKG showed sinus rhythm, incomplete right bundle blood block, left anterior fascicular block, PVC. Troponins minimally elevated with current peak troponin level of 0.08. CTA chest abdomen reports no evidence of dissection; intra-/extrahepatic biliary duct dilation, pneumobilia, with gallbladder hydrops, and biliary wall hyperemia which may represent ascending cholangitis in the appropriate clinical context. No obstructing biliary stone or mass detected. 3.9 cm abdominal aortic aneurysm,? Review of Systems Review of Systems: General: Negative for fever, chills, fatigue Psychological: Positive for anxiety Ophthalmic: negative for loss of vision ENT: Negative for epistaxis, headaches Allergy and immunology: Negative for hives, nasal congestion Hematologic and lymphatic: Negative for overt bleeding problems Endocrine: Negative for hot flashes, palpitations Respiratory: Negative for cough, hemoptysis Cardiovascular: Positive for lower lower substernal pain Gastrointestinal: Positive for epigastric pain, constipation Musculoskeletal: Positive for chronic back pain Neurological: Negative for weakness Dermatological: Negative for rash, skin discoloration PMFSH Past Medical History Medi
[2022-03-31] MEDS: ASPIRIN 81 MG CHEWABLE TABLET PO (10:08)
[2022-03-31] MEDS: ATORVASTATIN 40 MG TABLET 80 MG PO (10:08)
[2022-03-31 10:22] LABS: Glucose Point of Care 149 mg/dl (65-105)
--- NOTE | 2022-03-31 11:21 | PM.IMHP ---
H&P: HPI History of Present Illness Date/Time: 03/31/22 11:21 Chief Complaint: Chest pain Narrative: This is a 72-year-old male who presents to the ED with complaints of substernal chest pain that started yesterday. Patient was resting while the chest pain started. He denies any radiation to the back or to the neck. He reports the chest pain is severe. He denies any ongoing previous history of chest pain are coronary artery disease in the past. Denies any associated nausea vomiting diarrhea or shortness of breath. Denies any abdominal pain. He does report history of chronic diarrhea since last year which resolved with stopping Co Q10. Is a very poor historian. His history of in gastroesophageal reflux disease. He had a history of stress test done. Ago results unknown. Prior history of CVA. He is a smoker and has hypertension. He has chronic back pain and takes methadone and Percocet. His initial troponin was negative however the next set came back positive and hence admitted for further evaluation and management. His CTA was done which showed pneumobilia with intra and extrahepatic biliary duct dilatation with gallbladder hydrops and biliary wall hyperemia which may represent ascending cholangitis. He the are denies any abdominal pain at all. Review of Systems Review of Systems: - CONSTITUTIONAL: Denies weight loss, fever and chills. - HEENT: Denies changes in vision and hearing - RESPIRATORY: Denies SOB and cough. - CV: Denies palpitations and reports CP. - GI: Denies abdominal pain, nausea, vomiting and diarrhea. - : Denies dysuria and urinary frequency. - MSK: Denies myalgia and joint pain. Has chronic back pain - SKIN: Denies rash and pruritus. - NEUROLOGICAL: Denies headache and syncope. - PSYCHIATRIC: Denies recent changes in mood. Denies anxiety and depression. [facility] Past Medical History Medical History Tobacco abuse Family History Family History (Updated 03/31/22 @ 04:16 by Clare Braga RN) Mother Hodgkins disease Father Hypertension Sibling Congestive heart failure Social History Social History Smoking packs per day: 1 Smoking cigarettes per day: 20.0 Years smoked: 50 Smoking pack-years: 50.00 Smoking status: Current every day smoker Tobacco type: cigarettes Second hand tobacco smoke exposure: Yes Alcohol intake: never Substance use: current Substance use type: prescription drug Other substance usage details: oxycodone 10/325 , methadone Spiritual care concerns: No Meds Home Medications and Allergies Home Medications Medication Instructions Recorded Confirmed Type amitriptyline 10 mg tablet 10 mg PO QHS 06/05/21 03/31/22 History aspirin 81 mg tablet,delayed 81 mg PO DAILY 06/05/21 03/31/22 History release clonazepam 1 mg tablet (Klonopin) 2 mg PO DAILY 06/05/21 03/31/22 History coenzyme Q10 30 mg capsule (Co 30 mg PO DAILY 06/05/21 03/31/22 History Q-10) folic acid-vit B6-vit B12 2.5 1 tablet PO DAILY 06/05/21 03/31/22 History mg-25 mg-2 mg tablet (Folbic) glyburide 2.5 mg-metformin 500 mg 1 tablet PO DAILY 06/05/21 03/31/22 History tablet oxycodone-acetaminophen 10 mg-325 1 tablet PO Q4-6H 06/05/21 03/31/22 History mg tablet simvastatin 40 mg tablet 40 mg PO DAILY 06/05/21 03/31/22 History methadone 10 mg tablet 20 mg PO Q12H 06/20/21 03/31/22 History Allergies Allergy/AdvReac Type Severity Reaction Status Date / Time midazolam Allergy Severe Hives / Verified 03/30/22 20:36 Red Face Vital Signs Vital Signs - 24 hr 03/30/22 20:29 03/30/22 21:07 03/30/22 22:41 Temperature 98.6 F Pulse Rate 71 68 67 Respiratory Rate 20 18 Blood Pressure 192/98 H 108/68 Pulse Oximetry 95 94 Oxygen Delivery Room Air 03/31/22 00:01 03/31/22 01:19 03/31/22 02:01 Temperature Pulse Rate 59 L 68 59 L
[2022-03-31] MEDS: methADONE HCL (*CRX) 10 MG TABLET 20 MG PO (13:40)
[2022-03-31 14:42] LABS: Glucose Point of Care 150 mg/dl (65-105)
[2022-03-31 16:22] LABS: Glucose Point of Care 152 mg/dl (65-105)
[2022-03-31] MEDS: oxyCODONE/ACETAMINOPHEN (*CRX) 5-325 MG TABLET 1 TABLET PO (18:43)
[2022-03-31] MEDS: oxyCODONE HCL (*CRX) 5 MG TAB IR PO (18:44)
[2022-03-31] MEDS: AMITRIPTYLINE HCL 10 MG TABLET PO (20:46)
[2022-03-31] MEDS: methADONE HCL (*CRX) 10 MG TABLET PO (20:49)
[2022-04-01] VITALS (10 sets, daily range): BP systolic 91–139; BP diastolic 47–97; PULSE 73–97; RESP 12–22; TEMP 37.1–37.6; O2SAT 91–96; BMI 20.8
[2022-04-01] MEDS: oxyCODONE/ACETAMINOPHEN (*CRX) 5-325 MG TABLET 1 TABLET PO ×2 (04:56→09:56)
[2022-04-01] MEDS: oxyCODONE HCL (*CRX) 5 MG TAB IR PO ×2 (04:57→09:57)
[2022-04-01 05:16] LABS: Basophils Percent Auto 0.3 % (0.2-1.2); Eosinophils Percent Auto 0.1 % (0-4.4); Hematocrit 45.2 % (42.0-52.0); Hemoglobin 15.7 g/dL (14.0-18.0); Immature Granulocyte Absolute 0.08 K/mm3 (0.00-0.031); Immature Granulocyte Percent A 0.6 % (0-0.5); Lymphocytes Absolute Auto 1.21 K/mm3 (0.9-3.2); Lymphocytes Percent Auto 8.6 % (18.3-44.2); Mean Corpuscular HGB Conc 34.7 g/dl (32-36); Mean Corpuscular Hemoglobin 34.1 pg (26-34); Mean Corpuscular Volume 98.3 fl (80-100); Mean Platelet Volume 11.8 fl (7.4-10.4); Monocytes Absolute Auto 1.1 K/mm3 (0.1-0.6); Monocytes Percent Auto 7.9 % (2.6-8.5); Neutrophils Absolute Auto 11.7 K/mm3 (1.3-6.7); Neutrophils Percent Auto 82.5 % (45.5-73.1); Platelet Count Result 191 k/mm3 (150-375); Red Cell Distribution Width 12.6 % (11.5-14.5); White Blood Count 14.1 K/mm3 (4.5-10.0)
[2022-04-01 05:25] LABS: Alanine Aminotransferase 8 U/L (6-50); Albumin Level 4.4 g/dL (3.5-5.1); Alkaline Phosphatase 58 U/L (38-126); Anion Gap 5 mmol/L (8-16); Aspartate Amino Transferase 27 U/L (17-59); Bilirubin,Total 0.9 mg/dL (0.2-1.3); Blood Urea Nitrogen 13 mg/dL (9-20); Calcium 9.3 mg/dL (8.4-10.2); Carbon Dioxide 33 mmol/L (22-30); Chloride 97 mmol/L (98-107); Estimated CRCL calculation 55 ml/min; Estimated Glomerular Filt Rate > 60; Glucose 208 mg/dL (65-110); Magnesium 1.2 mg/dL (1.6-2.3); Potassium 4.4 mmol/L (3.4-5.0); Sodium 135 mmol/L (137-145)
--- NOTE | 2022-04-01 07:01 | EST_ITS ---
Patient Info Name: Julius Flores Age: 72 years : 1950 Gender: Male Ht: 74 in Wt: 162 lbs BSA: 1.95 m2 HR: 90 bpm BP: 116 / 70 mmHg Heart Rhythm: Sinus Rhythm Exam Date: 04/01/2022 12:13 PM Exam Location: [facility] Stress Patient Status: Inpatient Admit Date: 03/31/2022 Staff Ordering Physician: Orlando Rodriguez DO Attending Provider: Colin Bynum MD Exercise Technologist: Rachel Lees CT Exercise Physician: Orlando Rodriguez DO Exam Type: CA stress mally w NM Study Info Indications R07.9 - Chest pain, unspecified A regadenoson stress test was performed. Summary 1. 1. Negative lexiscan stress test for ischemic ST changes by ECG criteria. 2. 2. Stable hemodynamics throughout the test. 3. 3. Nuclear scan to follow and will be reported separately. Please correlate with it. 4. 4. Patient informed of the above results. Protocol: Lexiscan Stress ECG Details Stage: REST Duration (min): 1 min : 34 sec HR (bpm): 90 SBP (mmHg): 116 DBP (mmHg): 70 Stage: REST Duration (min): 7 min : 28 sec HR (bpm): 97 SBP (mmHg): 116 DBP (mmHg): 70 Stage: STAGE 1 Duration (min): 1 min : 0 sec HR (bpm): 94 SBP (mmHg): 109 DBP (mmHg): 72 Stage: RECOVERY Duration (min): 1 min : 0 sec HR (bpm): 99 SBP (mmHg): 109 DBP (mmHg): 72 Stage: RECOVERY Duration (min): 2 min : 0 sec HR (bpm): 100 SBP (mmHg): 109 DBP (mmHg): 72 Stage: RECOVERY Duration (min): 3 min : 0 sec HR (bpm): 99 SBP (mmHg): 109 DBP (mmHg): 72 Stage: RECOVERY Duration (min): 3 min : 37 sec HR (bpm): 101 SBP (mmHg): 107 DBP (mmHg): 68 Rest HR: 97 bpm Peak HR: 102 bpm Rest Sys BP: 116 mmHg Peak Sys BP: 109 mmHg Max Pred HR: 149 bpm % Max Pred HR: 68 % Target HR: 127 bpm Max RPP: 11,118 bpm*mmHg Termination Reason: Completed protocol Cardiac Symptoms: Shortness of breath Total Time: 1 min : 0 sec Rest Perdomo BP: 70 mmHg Peak Perdomo BP: 72 mmHg Total Dose: 0.4 mg Resting ECG Sinus rhythm. Stress ECG No ST changes. Arrhythmias None. Report Signatures
--- NOTE | 2022-04-01 07:37 | PM.PNCARD ---
Progress Note: A&P Assessment and Plan (1) Chest pain: Code(s): R07.9 - Chest pain, unspecified Status: Acute Assessment and Plan: Somewhat atypical CP under a lot of stress, but with multiple risk factors including stroke s/p Right CEA, DM, smoking, dyslipidemia. Troponin mildly elevated and trending up currently at .082. EKG shows no acute ST abnormalities, cannot r/o septal infarct and inferior infarct, age indeterminate. Echo shows EF 60-65%, mild LVH, grade I diastolic dysfunction (E/e' 4), mild-mod MR, trace TR. On aspirin and Simvastatin. I consulted interventional cardiology with Dr. Gomez, and we agreed to hold off on cath, and assess with lexiscan myoview stress test to risk stratify. His chest pains appear to be more epigastric than lower sternal. In case he needs surgery or procedure for cholecystitis, we would not want to place a stent and need for dual antiplatelets for a non-ACS CAD. (2) Dyslipidemia: Code(s): E78.5 - Hyperlipidemia, unspecified Status: Acute (3) Smoking: Code(s): F17.200 - Nicotine dependence, unspecified, uncomplicated Status: Acute Assessment and Plan: Counseled regarding smoking cessation. (4) Elevated troponin: Code(s): R77.8 - Other specified abnormalities of plasma proteins Status: Acute Assessment and Plan: Trend troponin to peak.?Could be related to cholecystitis. (5) Diabetes: Code(s): E11.9 - Type 2 diabetes mellitus without complications Status: Acute Assessment and Plan: Managed by PCP. (6) Epigastric pain: Code(s): R10.13 - Epigastric pain Status: Acute Assessment and Plan: CT abd shows dilated biliary ducts with possible ascending cholangitis. US abd shows cholecystitis. GI consulted. Subjective Date/time seen: 04/01/22 07:37 Has intermittent epigastric abdominal pain. No chest pains. Reports chronic lower back pain. No SOB. Exam Const: General: cooperative, healthy appearing and comfortable Resp: Auscultation: clear to auscultation bilaterally, no crackles, no rales, no rhonchi and no wheezes Cardio: Jugular venous distension: no JVD Rate: regular rate Rhythm: regular rhythm Heart sounds: no murmurs Peripheral pulses: dorsalis pedis present GI: GI Palp: No abdominal tenderness and Yes Soft to palpation Neuro: General: oriented to person, oriented to place and oriented to time Extrem: Right lower extremity: no edema Left lower extremity: no edema Objective Data Vital Signs Vital Signs: Vital Signs - 24 hr 03/31/22 08:22 03/31/22 08:00 03/31/22 10:00 Temperature 97.9 F Pulse Rate 65 72 61 Respiratory Rate 18 Blood Pressure 109/62 Pulse Oximetry 95 Oxygen Delivery 03/31/22 08:00 03/31/22 14:00 03/31/22 16:17 Temperature 97.9 F Pulse Rate 73 74 Respiratory Rate 20 Blood Pressure 160/91 H Pulse Oximetry 95 95 Oxygen Delivery Room Air 03/31/22 16:00 03/31/22 16:00 03/31/22 18:00 Temperature Pulse Rate 79 78 Respiratory Rate Blood Pressure Pulse Oximetry 95 Oxygen Delivery Room Air 03/31/22 20:00 03/31/22 20:00 03/31/22 22:00 Temperature 98.4 F Pulse Rate 75 75 81 Respiratory Rate 14 Blood Pressure 169/97 H Pulse Oximetry 95 Oxygen Delivery 03/31/22 20:00 04/01/22 00:00 04/01/22 00:00 Temperature 98.7 F Pulse Rate 81 87 Respiratory Rate 12 Blood Pressure 139/97 H Pulse Oximetry 95 Oxygen Delivery Room Air 04/01/22 00:00 04/01/22 02:00 04/01/22 04:00 Temperature Pulse Rate 87 Respiratory Rate Blood Pressure Pulse Oximetry Oxygen Delivery Room Air Room Air 04/01/22 04:00 04/01/22 06:00 04/01/22 04:00 Temperature 98.9 F Pulse Rate 91 97 89 Respiratory Rate 22 H Blood Pressure 126/92 H Pulse Oximetry 93 Oxygen Delivery Intake/Output Intake/Output: Intake & Output 03/29/22 03/30/22 03/31/22 04/01/22 23:59 23:5
[2022-04-01 07:47] LABS: Glucose Point of Care 236 mg/dl (65-105)
[2022-04-01 07:57] LABS: Troponin I 0.746 ng/mL (0.000-0.034)
--- NOTE | 2022-04-01 08:55 | PM.IMPN ---
Progress Note: A&P Assessment and Plan (1) Elevated troponin: Code(s): R77.8 - Other specified abnormalities of plasma proteins Status: Acute (2) Smoking: Code(s): F17.200 - Nicotine dependence, unspecified, uncomplicated Status: Acute (3) Dyslipidemia: Code(s): E78.5 - Hyperlipidemia, unspecified Status: Acute (4) Diabetes: Code(s): E11.9 - Type 2 diabetes mellitus without complications Status: Acute (5) Chest pain: Code(s): R07.9 - Chest pain, unspecified Status: Acute (6) Acute non-ST elevation myocardial infarction (NSTEMI): Code(s): I21.4 - Non-ST elevation (NSTEMI) myocardial infarction Status: Acute (7) Tobacco abuse: Code(s): Z72.0 - Tobacco use Status: Acute Plan Chest pain lower substernal atypical. Initial troponin negative a 2nd set elevated suggestive of non ST-elevation CT. EKG reviewed. Cardiology has been consulted. Could not lay down for him to get catheterization which was planned by Cardiology 03/31/2022. Echo ordered which revealed EF 60-65% grade 1 diastolic dysfunction [id number] MR. No wall motion abnormalities detected. On aspirin and atorvastatin. Check lipid profile. Also is a smoker has known risk factor. Atorvastatin now right admission was on simvastatin [address]-elevation CT see above. Troponin 10 rate up to 0.7 this morning. Stress test was risk stratification given the findings of gallbladder problem. Abnormal CT scan with intra/extrahepatic biliary duct dilatation and pneumobilia with gallbladder on hydrops and biliary wall hyperemia findings suggestive of ascending cholangitis. Patient afebrile WBC count is mildly elevated will cover with IV antibiotics. Will get blood cultures x2. GI consultation for further evaluation on this. Order right upper quadrant ultrasound to further evaluate. Started empirically on Zosyn to cover for ascending cholangitis. Right upper quadrant ultrasound came back positive for gallbladder sludge with gallbladder distention positive sonographic Palafox sign without pericholecystic fluid findings stable cholecystitis. There was also noted enlargement of the common bile duct unclear etiology to consider MRCP or ERCP. Awaiting GI evaluation. Keep NPO and IV antibiotics and IV fluids. Will also consult General surgery for findings of cholecystitis. Abdominal aortic aneurysm 3.9 cm he has a known history of this Hypertension home medication Hyperlipidemia home medication Chronic back pain on methadone and Percocet which is resumed DVT prophylaxis Lovenox Code status full code Subjective Date/time seen: 04/01/22 08:55 Interval history: This is a 72-year-old male who presents to the ED with complaints of substernal chest pain that started yesterday.? Patient was resting while the chest pain started.? He denies any radiation to the back or to the neck.? He reports the chest pain is severe.? He denies any ongoing previous history of chest pain are coronary artery disease in the past.? Denies any associated nausea vomiting diarrhea or shortness of breath.? Denies any abdominal pain.? He does report history of chronic diarrhea since last year which resolved with stopping Co Q10.? Is a very poor historian.? His history of in gastroesophageal reflux disease.? He had a history of stress test done.? Ago results unknown.? Prior history of CVA.? He is a smoker and has hypertension.? He has chronic back pain and takes methadone and Percocet. His initial troponin was negative however the next set came back positive and hence admitted for further evaluation and management.? His CTA was done which showed pneumobilia with intra and extrahepatic biliary duct dilatation with gallbladder hydrops and biliary wall hyperemia which may represent ascending cholangitis.? He the are denies any abdominal pain at all. 04/01/2022 reports pain is better. Complains of lower sternal chest pain. N
[2022-04-01 09:34] LABS: Cholesterol 154 mg/dL (0-200); HDL Direct 39 mg/dL; Triglycerides 94 mg/dL (<150)
[2022-04-01 09:46] LABS: LDL Cholesterol Direct 73 mg/dL
[2022-04-01] MEDS: ATORVASTATIN 40 MG TABLET 80 MG PO (09:51)
[2022-04-01] MEDS: ASPIRIN 81 MG ENTERIC TABLET PO (09:51)
[2022-04-01] MEDS: SODIUM CHLORIDE 0.9% IV 1,000 ML 75 ML IV CONT (09:55)
[2022-04-01] MEDS: MAGNESIUM SULF 2 GM/WATER 50ML 2 GM/50 ML BAG IVPB (09:55)
[2022-04-01] MEDS: methADONE HCL (*CRX) 10 MG TABLET PO ×2 (09:56→20:42)
[2022-04-01] MEDS: clonazePAM (*CRX) 0.5 MG TABLET 2 MG PO (09:56)
--- NOTE | 2022-04-01 10:56 | PM.CNGS ---
Assessment and Plan Assessment and plan (1) Cholecystitis: Code(s): K81.9 - Cholecystitis, unspecified Status: Acute Assessment and Plan: Patient initially presented with substernal chest pain. Cardiology following and feels this is more noncardiac epigastric pain. He is continuing to complain of abdominal pain, although the location of his pain seems inconsistent. Ultrasound with evidence of cholecystitis. WBC up to 14,100. LFTs normal. Would agree with continuing IV Zosyn for now and allowing Cardiology to continue their work-up to rule out ischemia. Will await Lexiscan results and Cardiology's recommendations. If the Lexiscan is positive, then we will plan for placement of a percutaneous cholecystostomy tube in Radiology. If this is negative, then we could consider proceeding with a laparoscopic cholecystectomy with intraoperative cholangiogram by Dr. Steiner possibly as soon as tomorrow. Will continue to follow. (2) Common bile duct dilatation: Code(s): K83.8 - Other specified diseases of biliary tract Status: Acute Assessment and Plan: CTA showed intrahepatic and extrahepatic biliary duct dilatation with intrahepatic pneumobilia, but no obstructing stone or mass seen. LFTs normal. He is afebrile. GI consulted. If his Lexiscan is negative and we proceed with a cholecystectomy, then we could do an intraoperative cholangiogram to assess the common bile duct. (3) Chest pain: Code(s): R07.9 - Chest pain, unspecified Status: Acute Assessment and Plan: Presented with substernal chest pain now felt to more likely be epigastric pain. Troponin with mild elevation and slowly trending up. Cardiology following, Lexiscan today. (4) Elevated troponin: Code(s): R77.8 - Other specified abnormalities of plasma proteins Status: Acute (5) Type 2 diabetes mellitus: Code(s): E11.9 - Type 2 diabetes mellitus without complications Status: Acute (6) Chronic prescription opiate use: Code(s): Z79.891 - intermediate (current) use of opiate analgesic Status: Chronic Assessment and Plan: Opioid tolerant with chronic use of Percocet and Methadone. Masks some of his pain and makes it somewhat difficult to assess. (7) Chronic back pain: Code(s): M54.9 - Dorsalgia, unspecified; G89.29 - Other chronic pain Status: Chronic (8) AAA (abdominal aortic aneurysm): Code(s): I71.4 - Abdominal aortic aneurysm, without rupture Status: Acute Assessment and Plan: Noted on CTA, stable. (9) Tobacco abuse: Code(s): Z72.0 - Tobacco use Status: Chronic Assessment and Plan: Encouraged cessation. Increases risks of surgery. (10) Dyslipidemia: Code(s): E78.5 - Hyperlipidemia, unspecified Status: Acute Plan I have discussed the patient's case and plan of care with Dr. Steiner. Thank you for allowing us to see the patient in consultation and we will continue to follow along with you. History of Present Illness Consult details Consult date: 04/01/22 Reason for consult: other (Cholecystitis) Requesting physician: Colin Bynum MD Narrative: This is a 72-year-old male with a history of type 2 diabetes mellitus, dyslipidemia, tobacco abuse, AAA, history of CVA status post carotid endarterectomy in 2001, and chronic back pain with chronic opioid use. He presented to the ER 2 nights ago with complaints substernal chest pain. He reportedly had a stressful day and was concerned about his chest pain coming on due to stress. In the ED, his initial troponin was negative but second troponin was slightly elevated. EKG showed no acute ST changes. CTA of the chest/abdomen/pelvis showed intra and extrahepatic biliary duct dilatation with intrahepatic intrabiliary gas predominantly in the left lobe of the liver with mild gallbladder dilation and mild wall hyperemia, but no stones. Common bile duct was measured at 13 mm with mucosal e
--- NOTE | 2022-04-01 15:10 | PCNSR ---
On 04/01/22, the student,Bianca Schaeffer, provided care and completed [facility] documentation on this patient. I have reviewed the student's documentation and agree with the findings.
[2022-04-01 16:34] LABS: Glucose Point of Care 304 mg/dl (65-105)
[2022-04-01 21:27] LABS: Glucose Point of Care 246 mg/dl (65-105)
[2022-04-02] MEDS: AMITRIPTYLINE HCL 10 MG TABLET PO ×2 (00:07→20:23)
[2022-04-02 05:01] LABS: Basophils Percent Auto 0.2 % (0.2-1.2); Eosinophils Percent Auto 0.2 % (0-4.4); Hematocrit 38.6 % (42.0-52.0); Hemoglobin 13.3 g/dL (14.0-18.0); Immature Granulocyte Absolute 0.17 K/mm3 (0.00-0.031); Lymphocytes Absolute Auto 2.07 K/mm3 (0.9-3.2); Lymphocytes Percent Auto 11.7 % (18.3-44.2); Mean Corpuscular HGB Conc 34.5 g/dl (32-36); Mean Corpuscular Hemoglobin 34.3 pg (26-34); Mean Corpuscular Volume 99.5 fl (80-100); Mean Platelet Volume 11.7 fl (7.4-10.4); Monocytes Absolute Auto 1.6 K/mm3 (0.1-0.6); Monocytes Percent Auto 8.7 % (2.6-8.5); Neutrophils Absolute Auto 13.9 K/mm3 (1.3-6.7); Neutrophils Percent Auto 78.2 % (45.5-73.1); Platelet Count Result 169 k/mm3 (150-375); Red Blood Count 3.88 M/mm3 (4.6-6.20); Red Cell Distribution Width 13.1 % (11.5-14.5); White Blood Count 17.7 K/mm3 (4.5-10.0)
[2022-04-02 05:22] LABS: Alanine Aminotransferase 6 U/L (6-50); Albumin Level 3.7 g/dL (3.5-5.1); Alkaline Phosphatase 49 U/L (38-126); Anion Gap 3 mmol/L (8-16); Aspartate Amino Transferase 21 U/L (17-59); Bilirubin,Total 0.6 mg/dL (0.2-1.3); Blood Urea Nitrogen 30 mg/dL (9-20); Calcium 8.5 mg/dL (8.4-10.2); Carbon Dioxide 32 mmol/L (22-30); Chloride 99 mmol/L (98-107); Estimated CRCL calculation 29 ml/min; Estimated Glomerular Filt Rate 31; Glucose 173 mg/dL (65-110); Magnesium 1.9 mg/dL (1.6-2.3); Potassium 4.6 mmol/L (3.4-5.0); Sodium 134 mmol/L (137-145)
[2022-04-02] MEDS: SODIUM CHLORIDE 0.9% IV 1,000 ML 75 ML IV CONT (06:03)
--- NOTE | 2022-04-02 07:08 | WPDGICN ---
Assessment and Plan Assessment and plan (1) Cholecystitis: Code(s): K81.9 - Cholecystitis, unspecified Status: Acute Assessment and Plan: surgery/ Cholecystectomy, anticipated for tomorrow. (2) Common bile duct dilatation: Code(s): K83.8 - Other specified diseases of biliary tract Status: Acute Assessment and Plan: I suspect, given normal liver enzymes, that is biliary dilatation is due to chronic opioid use. MRCP will be done today. If any indication of possible common bile duct stones, then we will proceed with ERCP. I discussed with him the procedure for explain the use of sedation. Explained removal of bile duct stones, possible complications such as bleeding or pancreatitis she (3) Chronic prescription opiate use: Code(s): Z79.891 - shelter (current) use of opiate analgesic Status: Chronic Assessment and Plan: He has been on these for chronic back pain. As noted above, this could explain biliary dilatation. In part this is thought to be due to increased tone of the sphincter of Oddi by narcotics. GI Consult Note Consult date/time: 04/02/22 07:08 HPI: Julius Flores is a 72 year old male who was admitted with abdominal pain and found to have cholecystitis. He actually presented to the emergency room with chest pain. A Lexiscan test was negative. He has been found to have sludge in the gallbladder. Also ultrasound showed dilated bile ducts. The liver enzymes and bilirubin are normal. He denies any prior history of biliary tract disease or liver disease. It appears that he had been in our office last year because of C difficile infection. In our conversations morning he cannot recall those visits at all. He does remember that his primary care physician is Dr. Butler. He is not sure whether he has had a fever at home. He denies prior jaundice. He has been on chronic pain medications due to herniated discs. He has not had surgery but he states that surgery is being contemplated as he now has 3 herniated discs. Review of Systems Review of Systems: All systems reviewed & are unremarkable except as noted in HPI and below PMFSH Past Medical History Medical History AAA (abdominal aortic aneurysm) Chronic back pain Chronic prescription opiate use CVA (cerebral vascular accident) GERD (gastroesophageal reflux disease) Tobacco abuse Type 2 diabetes mellitus Surgical History Surgical History History of right-sided carotid endarterectomy Family History Family History Mother Hodgkins disease Father Hypertension Sibling Congestive heart failure Social History Social History Smoking packs per day: 1 Smoking cigarettes per day: 20.0 Years smoked: 50 Smoking pack-years: 50.00 Smoking status: Current every day smoker Tobacco type: cigarettes Second hand tobacco smoke exposure: Yes Alcohol intake: never Substance use: current Substance use type: prescription drug Other substance usage details: oxycodone 10/325 , methadone Living arrangements: with family Additional living arrangements comments: Occupation/Education: retired Spiritual care concerns: No Meds Home Medications and Allergies Home Medications Medication Instructions Recorded Confirmed Type amitriptyline 10 mg tablet 10 mg PO QHS 06/05/21 03/31/22 History aspirin 81 mg tablet,delayed 81 mg PO DAILY 06/05/21 03/31/22 History release clonazepam 1 mg tablet (Klonopin) 2 mg PO DAILY 06/05/21 03/31/22 History coenzyme Q10 30 mg capsule (Co 30 mg PO DAILY 06/05/21 03/31/22 History Q-10) folic acid-vit B6-vit B12 2.5 1 tablet PO DAILY 06/05/21 03/31/22 History mg-25 mg-2 mg tablet (Folbic) glyburide 2.5 mg-metfo
[2022-04-02 07:46] LABS: Glucose Point of Care 187 mg/dl (65-105)
[2022-04-02 08:00] VITALS: BP 136/59; PULSE 70; RESP 16; TEMP 36.9; O2SAT 92
--- NOTE | 2022-04-02 09:03 | PM.PNCARD ---
Progress Note: A&P Assessment and Plan (1) Chest pain: Code(s): R07.9 - Chest pain, unspecified Status: Acute Assessment and Plan: Somewhat atypical CP under a lot of stress, but with multiple risk factors including stroke s/p Right CEA, DM, smoking, dyslipidemia. Troponin mildly elevated and trending up currently at .082. EKG shows no acute ST abnormalities, cannot r/o septal infarct and inferior infarct, age indeterminate. Echo shows EF 60-65%, mild LVH, grade I diastolic dysfunction (E/e' 4), mild-mod MR, trace TR. On aspirin and Simvastatin. I consulted interventional cardiology with Dr. Gomez, and we agreed to hold off on cath, and assess with lexiscan myoview stress test to risk stratify. His chest pains appear to be more epigastric than lower sternal. In case he needs surgery or procedure for cholecystitis, we would not want to place a stent and need for dual antiplatelets for a non-ACS CAD. Lexiscan myoview stress test shows no ischemia. He is at low cardiac risk for noncardiac surgery which is cholecystectomy and may proceed without further cardiac workup. (2) Dyslipidemia: Code(s): E78.5 - Hyperlipidemia, unspecified Status: Acute (3) Smoking: Code(s): F17.200 - Nicotine dependence, unspecified, uncomplicated Status: Deleted Assessment and Plan: Counseled regarding smoking cessation. (4) Elevated troponin: Code(s): R77.8 - Other specified abnormalities of plasma proteins Status: Acute Assessment and Plan: Trend troponin to peak.?Could be related to cholecystitis. (5) Diabetes: Code(s): E11.9 - Type 2 diabetes mellitus without complications Status: Deleted Assessment and Plan: Managed by PCP. (6) Epigastric pain: Code(s): R10.13 - Epigastric pain Status: Acute Assessment and Plan: CT abd shows dilated biliary ducts with possible ascending cholangitis. US abd shows cholecystitis. GI consulted. General surgery following. Subjective Date/time seen: 04/02/22 09:03 No longer having epigastric/lower sternal pain. He has severe 9/10 sharp RUQ pain now that started early this morning. No sob. Has chronic lower back pain. Exam Const: General: cooperative, healthy appearing and comfortable Resp: Auscultation: clear to auscultation bilaterally, no crackles, no rales, no rhonchi and no wheezes Cardio: Jugular venous distension: no JVD Rate: regular rate Rhythm: regular rhythm Heart sounds: no murmurs Peripheral pulses: dorsalis pedis present GI: GI Palp: Yes abdominal tenderness (RUQ) and Yes Soft to palpation Neuro: General: oriented to person, oriented to place and oriented to time Extrem: Right lower extremity: no edema Left lower extremity: no edema Objective Data Vital Signs Vital Signs: Vital Signs - 24 hr 04/01/22 10:00 04/01/22 12:00 04/01/22 12:00 Temperature Pulse Rate 91 93 Respiratory Rate Blood Pressure Pulse Oximetry Oxygen Delivery Room Air 04/01/22 16:49 04/01/22 20:00 04/01/22 20:00 Temperature 98.9 F 98.9 F Pulse Rate 82 76 Respiratory Rate 20 14 Blood Pressure 91/47 L 117/49 L Pulse Oximetry 95 91 Oxygen Delivery Room Air 04/01/22 23:39 04/02/22 08:00 Temperature 99.1 F 98.5 F Pulse Rate 73 70 Respiratory Rate 14 16 Blood Pressure 109/55 L 136/59 L Pulse Oximetry 96 92 Oxygen Delivery Intake/Output Intake/Output: Intake & Output 03/30/22 03/31/22 04/01/22 04/02/22 23:59 23:59 23:59 23:59 Intake Total 1410 1300 250 Output Total 1025 600 400 Balance 385 700 -150 Meds/Results Medications: Active Medications Generic Name Dose Route Start Last Admin Trade Name Freq PRN Reason Stop Dose Admin Amitriptyline HCl 10 mg 03/31/22 21:00 04/02/22 00:07 Amitriptyline Hcl 10 Mg Tablet PO 10 mg HS AB Administration Aspirin 81 mg 04/01/22 09:00 04/01/22 09:51 Aspirin 81 Mg Enteric Tablet PO 81 mg DAILY
--- NOTE | 2022-04-02 09:42 | PM.IMPN ---
Progress Note: A&P Assessment and Plan (1) Elevated troponin: Code(s): R77.8 - Other specified abnormalities of plasma proteins Status: Acute (2) Smoking: Code(s): F17.200 - Nicotine dependence, unspecified, uncomplicated Status: Deleted (3) Dyslipidemia: Code(s): E78.5 - Hyperlipidemia, unspecified Status: Acute (4) Diabetes: Code(s): E11.9 - Type 2 diabetes mellitus without complications Status: Deleted (5) Chest pain: Code(s): R07.9 - Chest pain, unspecified Status: Acute (6) Acute non-ST elevation myocardial infarction (NSTEMI): Code(s): I21.4 - Non-ST elevation (NSTEMI) myocardial infarction Status: Acute (7) Tobacco abuse: Code(s): Z72.0 - Tobacco use Status: Chronic Plan # Chest pain lower substernal atypical. Initial troponin negative a 2nd set elevated suggestive of non ST-elevation [place]. EKG reviewed. Cardiology has been consulted. Could not lay down for him to get catheterization which was planned by Cardiology 03/31/2022. Echo ordered which revealed EF 60-65% grade 1 diastolic dysfunction [id number] MR. No wall motion abnormalities detected. On aspirin and atorvastatin. Check lipid profile. Also is a smoker has known risk factor. Atorvastatin now right admission was on simvastatin 40 mg daily. Low risk per Cardiology for planned surgical intervention # Non ST-elevation [place] see above. Troponin 10 rate up to 0.7 this morning. Stress test was risk stratification given the findings of gallbladder problem. Stress test negative # Abnormal CT scan with intra/extrahepatic biliary duct dilatation and pneumobilia with gallbladder on hydrops and biliary wall hyperemia findings suggestive of ascending cholangitis. Patient afebrile WBC count is mildly elevated will cover with IV antibiotics. Obtain blood cultures x2 which remains negative to date. GI consultation for further evaluation on this. Order right upper quadrant ultrasound to further evaluate. Started empirically on Zosyn to cover for ascending cholangitis. Right upper quadrant ultrasound came back positive for gallbladder sludge with gallbladder distention positive sonographic Palafox sign without pericholecystic fluid findings stable cholecystitis. There was also noted enlargement of the common bile duct unclear etiology to consider MRCP or ERCP. Awaiting GI evaluation. Keep NPO and IV antibiotics and IV fluids. Consulted General surgery Plan for MRI today and eventually cholecystectomy depending on the findings # Abdominal aortic aneurysm 3.9 cm he has a known history of this # Hypertension home medication # Hyperlipidemia home medication # Chronic back pain on methadone and Percocet which is resumed # acute kidney injury creatinine bumped up to 2.1 today was normal yesterday. Increased IV fluid unclear etiology. Will check CK level also check his urine get ultrasound renal and bladder scan to rule out obstruction. # DVT prophylaxis Lovenox # Code status full code Subjective Date/time seen: 04/02/22 09:42 Interval history: This is a 72-year-old male who presents to the ED with complaints of substernal chest pain that started yesterday.? Patient was resting while the chest pain started.? He denies any radiation to the back or to the neck.? He reports the chest pain is severe.? He denies any ongoing previous history of chest pain are coronary artery disease in the past.? Denies any associated nausea vomiting diarrhea or shortness of breath.? Denies any abdominal pain.? He does report history of chronic diarrhea since last year which resolved with stopping Co Q10.? Is a very poor historian.? His history of in gastroesophageal reflux disease.? He had a history of stress test done.? Ago results unknown.? Prior history of CVA.? He is a smoker and has hypertension.? He has chronic back pain and takes methadone and Percocet. His initial troponin was negative however the next set
[2022-04-02 11:10] LABS: Creatine Kinase 60 U/L (55-170)
[2022-04-02] MEDS: methADONE HCL (*CRX) 10 MG TABLET PO ×2 (11:17→20:23)
[2022-04-02] MEDS: clonazePAM (*CRX) 0.5 MG TABLET 2 MG PO (11:17)
[2022-04-02] MEDS: ATORVASTATIN 40 MG TABLET 80 MG PO (11:17)
[2022-04-02] MEDS: ASPIRIN 81 MG ENTERIC TABLET PO (11:17)
--- NOTE | 2022-04-02 11:23 | PM.PNGS ---
Progress Note: A&P Assessment and Plan (1) Cholecystitis: Code(s): K81.9 - Cholecystitis, unspecified Status: Acute Assessment and Plan: seems to still be having pain. I discussed the possibility of discharge with rescheduling laparoscopic cholecystectomy as an outpatient in the future. Patient feels that he is having too much pain to do this. MRCP has been done but not yet read. If no common bile duct stones and no plans for ERCP, will plan to go ahead with laparoscopic cholecystectomy tomorrow morning. Procedure was again discussed with the patient. Recovery discussed. All questions were answered. He wishes to proceed. (2) Common bile duct dilatation: Code(s): K83.8 - Other specified diseases of biliary tract Status: Acute Assessment and Plan: MRCP done but not read as yet. Dr. Saini consultation appreciated (3) Chronic prescription opiate use: Code(s): Z79.891 - intermediate (current) use of opiate analgesic Status: Chronic (4) Chronic back pain: Code(s): M54.9 - Dorsalgia, unspecified; G89.29 - Other chronic pain Status: Chronic (5) Type 2 diabetes mellitus: Code(s): E11.9 - Type 2 diabetes mellitus without complications Status: Acute Subjective Subjective Date/Time Seen: 04/02/22 11:23 Patient reports: still having pain ( Seems to be in right lower quadrant.) and afebrile Review of Systems Review of Systems: All systems reviewed & are unremarkable except as noted in HPI and below ( HPI) Constitutional: Constitutional: Denies chills and Denies fever(s) Cardiovascular: Cardiovascular: Denies chest pain and Denies dyspnea Respiratory: Respiratory: Denies cough and Denies dyspnea Gastrointestinal: Gastrointestinal: Reports as per HPI Integumentary/Breasts: Skin/Breast: Denies lesions and Denies rash Exam Const: General: comfortable, no acute distress and awake Nutritional Appearance: thin Orientation/consciousness: No confusion GI: Inspection: normal to inspection, non-distended and scaphoid GI Palp: Yes Soft to palpation and Yes Tenderness to palpation present (GI) ( right lower quadrant and right upper quadrant) Auscultation: normal bowel sounds Objective Data Vital Signs Vital Signs: Vital Signs - 24 hr 04/01/22 12:00 04/01/22 12:00 04/01/22 16:49 Temperature 37.2 C Pulse Rate 93 82 Respiratory Rate 20 Blood Pressure 91/47 L Pulse Oximetry 95 Oxygen Delivery Room Air 04/01/22 20:00 04/01/22 20:00 04/01/22 23:39 Temperature 37.2 C 37.3 C Pulse Rate 76 73 Respiratory Rate 14 14 Blood Pressure 117/49 L 109/55 L Pulse Oximetry 91 96 Oxygen Delivery Room Air 04/02/22 08:00 04/02/22 08:00 Temperature 36.9 C Pulse Rate 70 Respiratory Rate 16 Blood Pressure 136/59 L Pulse Oximetry 92 Oxygen Delivery Room Air Intake/Output Intake/Output: Intake & Output 03/30/22 03/31/22 04/01/22 04/02/22 23:59 23:59 23:59 23:59 Intake Total 1410 1300 250 Output Total 1025 600 400 Balance 385 700 -150 Meds/Results Medications: Active Medications Generic Name Dose Route Start Last Admin Trade Name Freq PRN Reason Stop Dose Admin Amitriptyline HCl 10 mg 03/31/22 21:00 04/02/22 00:07 Amitriptyline Hcl 10 Mg Tablet PO 10 mg HS AB Administration Aspirin 81 mg 04/01/22 09:00 04/02/22 11:17 Aspirin 81 Mg Enteric Tablet PO 81 mg DAILY AB Administration Atorvastatin Calcium 80 mg 03/31/22 09:00 04/02/22 11:17 Atorvastatin 40 Mg Tablet PO 80 mg DAILY AB Administration Clonazepam 2 mg 04/01/22 09:00 04/02/22 11:17 Clonazepam (*Crx) 0.5 Mg Tablet PO 2 mg DAILY AB Administration Dextrose 12.5 gm 04/01/22 17:15 Dextrose 50% 25 Gm/50 Ml Syringe IV PUSH PRN PRN Hypoglycemia Protocol Folic Acid/Cyanocobalamin/pyridoxin 1 tab 04/01/22 09:00 04/02/22 11:17 Cyanocobalamin/Fa/Pyridoxine (Foltx) Tablet PO 1 tab
[2022-04-02 11:47] LABS: Glucose Point of Care 156 mg/dl (65-105)
[2022-04-02 14:54] VITALS: O2SAT 96
--- NOTE | 2022-04-02 16:22 | PC.NURSE ---
This patient, Julius Flores, was received from IMU on 04/02/22 at 1622. Patient/family oriented to unit policies and routines
--- NOTE | 2022-04-02 16:45 | PC.NURSE ---
This patient, Julius Flores, [facility] at 1620. Personal belongings sent with patient. Report given to Onelia YU. Appropriate documentation sent with patient.
[2022-04-02] MEDS: MORPHINE SULFATE (*CRX) 4 MG/ML INJ IV PUSH (16:58)
[2022-04-02 17:00] VITALS: BP 113/58; PULSE 66; RESP 16; TEMP 36.6; O2SAT 93
[2022-04-02 18:12] LABS: Glucose Point of Care 145 mg/dl (65-105)
[2022-04-02] MEDS: SODIUM CHLORIDE 0.9% IV 1,000 ML 125 ML IV CONT (18:26)
[2022-04-02 20:39] LABS: Glucose Point of Care 259 mg/dl (65-105)
[2022-04-02 21:48] VITALS: BP 88/61; PULSE 67; RESP 12; TEMP 36.4; O2SAT 93
[2022-04-03] VITALS (15 sets, daily range): BP systolic 83–159; BP diastolic 40–81; PULSE 54–66; RESP 12–20; TEMP 36.2–36.6; O2SAT 92–100
[2022-04-03] MEDS: SODIUM CHLORIDE 0.9% IV 1,000 ML 125 ML IV CONT ×3 (03:03→23:24)
[2022-04-03 04:14] LABS: Appearance Urine Clear (Clear); Bilirubin Urine Negative (Negative); Blood Urine 1+ (Negative); Color Urine Yellow (Yellow); Glucose Urine UA Negative (Negative); Ketones Urine Negative (Negative); Leukocyte Esterase Ur Negative LEU/UL (NEGATIVE); Nitrate Urine Negative (Negative); Protein Urine 1+ mg/dL (Negative); Urobilinogen Urine 0.2 mg/dL (<2.0); pH Urine 5.5 (5.0-9.0)
[2022-04-03 04:20] LABS: Sodium Urine Random 54 meq/L
[2022-04-03 04:24] LABS: Bacteria Urine Trace /hpf; Mucus Urine Rare /lpf; RBC Urine 0-2 /hpf (0-2); Uric Acid Crystals Urine Present /hpf; WBC Urine 0-3 /hpf (0-3)
[2022-04-03 04:26] LABS: Add Urine Microscopic? YES
[2022-04-03 04:56] LABS: Eosinophil Urine None Seen % (None Seen)
--- NOTE | 2022-04-03 07:33 | PM.PNCARD ---
Progress Note: A&P Assessment and Plan (1) Chest pain: Code(s): R07.9 - Chest pain, unspecified Status: Acute Assessment and Plan: Somewhat atypical CP under a lot of stress, but with multiple risk factors including stroke s/p Right CEA, DM, smoking, dyslipidemia. Troponin mildly elevated and trending up currently at .082. EKG shows no acute ST abnormalities, cannot r/o septal infarct and inferior infarct, age indeterminate. Echo shows EF 60-65%, mild LVH, grade I diastolic dysfunction (E/e' 4), mild-mod MR, trace TR. On aspirin and Simvastatin. I consulted interventional cardiology with Dr. Gomez, and we agreed to hold off on cath, and assess with lexiscan myoview stress test to risk stratify. His chest pains appear to be more epigastric than lower sternal. In case he needs surgery or procedure for cholecystitis, we would not want to place a stent and need for dual antiplatelets for a non-ACS CAD. Lexiscan myoview stress test shows no ischemia. He is at low cardiac risk for noncardiac surgery which is cholecystectomy or ERCP and may proceed without further cardiac workup. (2) Dyslipidemia: Code(s): E78.5 - Hyperlipidemia, unspecified Status: Acute (3) Smoking: Code(s): F17.200 - Nicotine dependence, unspecified, uncomplicated Status: Deleted Assessment and Plan: Counseled regarding smoking cessation. (4) Elevated troponin: Code(s): R77.8 - Other specified abnormalities of plasma proteins Status: Acute Assessment and Plan: Troponin increased to 0.746. Probably due to cholecystitis. (5) Diabetes: Code(s): E11.9 - Type 2 diabetes mellitus without complications Status: Deleted Assessment and Plan: Managed by PCP. (6) Epigastric pain: Code(s): R10.13 - Epigastric pain Status: Acute Assessment and Plan: CT abd shows dilated biliary ducts with possible ascending cholangitis. US abd shows cholecystitis. GI and General surgery following. (7) Hypotension: Code(s): I95.9 - Hypotension, unspecified Status: Acute Assessment and Plan: Probably due to volume depletion and pain medication. Receiving IVF. Subjective Date/time seen: 04/03/22 07:33 He has RUQ abd pain only with certain movements but not when lying still. No chest pain or sob. Exam Const: General: cooperative, healthy appearing and comfortable Resp: Auscultation: clear to auscultation bilaterally, no crackles, no rales, no rhonchi and no wheezes Cardio: Jugular venous distension: no JVD Rate: regular rate Rhythm: regular rhythm Heart sounds: no murmurs Peripheral pulses: dorsalis pedis present GI: GI Palp: Yes abdominal tenderness (RUQ) and Yes Soft to palpation Neuro: General: oriented to person, oriented to place and oriented to time Extrem: Right lower extremity: no edema Left lower extremity: no edema Objective Data Vital Signs Vital Signs: Vital Signs - 24 hr 04/02/22 08:00 04/02/22 08:00 04/02/22 14:54 Temperature 98.5 F Pulse Rate 70 Respiratory Rate 16 Blood Pressure 136/59 L Pulse Oximetry 92 96 Oxygen Delivery Room Air Room Air 04/02/22 17:00 04/02/22 20:00 04/02/22 21:48 Temperature 97.8 F 97.6 F Pulse Rate 66 67 Respiratory Rate 16 12 Blood Pressure 113/58 L 88/61 L Pulse Oximetry 93 93 Oxygen Delivery Room Air 04/03/22 01:28 04/03/22 05:20 Temperature 97.6 F 97.6 F Pulse Rate 62 66 Respiratory Rate 12 16 Blood Pressure 83/50 L 88/52 L Pulse Oximetry 93 93 Oxygen Delivery Intake/Output Intake/Output: Intake & Output 03/31/22 04/01/22 04/02/22 04/03/22 23:59 23:59 23:59 23:59 Intake Total 1410 1300 1520 1100 Output Total 1025 600 400 525 Balance 476 472 0648 575 Meds/Results Medications: Active Medications Generic Name Dose Route Start Last Admin Trade Name Freq PRN Reason Stop Dose Admin Amitriptyline HCl 10 mg 03/31/22 21:00 04/02/22 20:23 Amitr
[2022-04-03 08:14] LABS: Glucose Point of Care 180 mg/dl (65-105)
[2022-04-03] MEDS: SODIUM CHLORIDE 0.9% IV 1,000 ML 999 ML IV CONT (08:24)
[2022-04-03 08:40] LABS: Basophils Absolute Auto 0.1 K/mm3 (0.0-0.1); Basophils Percent Auto 0.4 % (0.2-1.2); Eosinophils Absolute Auto 0.1 K/mm3 (0-0.3); Hematocrit 33.7 % (42.0-52.0); Hemoglobin 10.9 g/dL (14.0-18.0); Immature Granulocyte Absolute 0.05 K/mm3 (0.00-0.031); Immature Granulocyte Percent A 0.4 % (0-0.5); Lymphocytes Absolute Auto 1.56 K/mm3 (0.9-3.2); Lymphocytes Percent Auto 12.6 % (18.3-44.2); Mean Corpuscular HGB Conc 32.3 g/dl (32-36); Mean Corpuscular Hemoglobin 33.9 pg (26-34); Mean Corpuscular Volume 104.7 fl (80-100); Mean Platelet Volume 12.2 fl (7.4-10.4); Monocytes Absolute Auto 0.7 K/mm3 (0.1-0.6); Monocytes Percent Auto 5.7 % (2.6-8.5); Neutrophils Absolute Auto 9.9 K/mm3 (1.3-6.7); Neutrophils Percent Auto 79.9 % (45.5-73.1); Platelet Count Result 144 k/mm3 (150-375); Red Blood Count 3.22 M/mm3 (4.6-6.20); Red Cell Distribution Width 13.2 % (11.5-14.5); White Blood Count 12.4 K/mm3 (4.5-10.0)
[2022-04-03 08:53] LABS: Alanine Aminotransferase 6 U/L (6-50); Albumin Level 2.9 g/dL (3.5-5.1); Alkaline Phosphatase 55 U/L (38-126); Anion Gap 6 mmol/L (8-16); Aspartate Amino Transferase 18 U/L (17-59); Bilirubin,Total 0.2 mg/dL (0.2-1.3); Blood Urea Nitrogen 27 mg/dL (9-20); Calcium 7.7 mg/dL (8.4-10.2); Carbon Dioxide 26 mmol/L (22-30); Chloride 105 mmol/L (98-107); Estimated CRCL calculation 46 ml/min; Estimated Glomerular Filt Rate 50; Glucose 167 mg/dL (65-110); Potassium 3.9 mmol/L (3.4-5.0); Sodium 137 mmol/L (137-145)
--- NOTE | 2022-04-03 10:08 | PM.IMPN ---
Progress Note: A&P Assessment and Plan (1) Elevated troponin: Code(s): R77.8 - Other specified abnormalities of plasma proteins Status: Acute (2) Smoking: Code(s): F17.200 - Nicotine dependence, unspecified, uncomplicated Status: Deleted (3) Dyslipidemia: Code(s): E78.5 - Hyperlipidemia, unspecified Status: Acute (4) Diabetes: Code(s): E11.9 - Type 2 diabetes mellitus without complications Status: Deleted (5) Chest pain: Code(s): R07.9 - Chest pain, unspecified Status: Acute (6) Acute non-ST elevation myocardial infarction (NSTEMI): Code(s): I21.4 - Non-ST elevation (NSTEMI) myocardial infarction Status: Acute (7) Tobacco abuse: Code(s): Z72.0 - Tobacco use Status: Chronic Plan # Chest pain lower substernal atypical. Initial troponin negative a 2nd set elevated suggestive of non ST-elevation [place]. EKG reviewed. Cardiology has been consulted. Could not lay down for him to get catheterization which was planned by Cardiology 03/31/2022. Echo ordered which revealed EF 60-65% grade 1 diastolic dysfunction [id number] MR. No wall motion abnormalities detected. On aspirin and atorvastatin. Check lipid profile. Also is a smoker has known risk factor. Atorvastatin now right admission was on simvastatin 40 mg daily. Low risk per Cardiology for planned surgical intervention # Non ST-elevation [place] see above. Troponin 10 rate up to 0.7 this morning. Stress test was risk stratification given the findings of gallbladder problem. Stress test negative # Abnormal CT scan with intra/extrahepatic biliary duct dilatation and pneumobilia with gallbladder on hydrops and biliary wall hyperemia findings suggestive of ascending cholangitis. Patient afebrile WBC count is mildly elevated will cover with IV antibiotics. Obtain blood cultures x2 which remains negative to date. GI consultation for further evaluation on this. Order right upper quadrant ultrasound to further evaluate. Started empirically on Zosyn to cover for ascending cholangitis. Right upper quadrant ultrasound came back positive for gallbladder sludge with gallbladder distention positive sonographic Palafox sign without pericholecystic fluid findings stable cholecystitis. There was also noted enlargement of the common bile duct unclear etiology to consider MRCP or ERCP. Awaiting GI evaluation. Keep NPO and IV antibiotics and IV fluids. Consulted General surgery Status post MRCP which reveals CBD stones. Plan for ERCP Subsequent planned for cholecystectomy per General surgery # Abdominal aortic aneurysm 3.9 cm he has a known history of this # Hypertension home medication Hypotensive this morning. Give IV fluid. # Hyperlipidemia home medication # Chronic back pain on methadone and Percocet which is resumed # acute kidney injury creatinine bumped up to 2.1 04/02/2022 was normal on admission. Increased IV fluid unclear etiology. CK level was normal. Urine plan. Renal ultrasound without any signs obstruction. IV fluid increase in creatinine improving today delete that # DVT prophylaxis Lovenox # Code status full code Subjective Date/time seen: 04/03/22 10:08 Interval history: This is a 72-year-old male who presents to the ED with complaints of substernal chest pain that started yesterday.? Patient was resting while the chest pain started.? He denies any radiation to the back or to the neck.? He reports the chest pain is severe.? He denies any ongoing previous history of chest pain are coronary artery disease in the past.? Denies any associated nausea vomiting diarrhea or shortness of breath.? Denies any abdominal pain.? He does report history of chronic diarrhea since last year which resolved with stopping Co Q10.? Is a very poor historian.? His history of in gastroesophageal reflux disease.? He had a history of stress test done.? Ago results unknown.? Prior history of CVA.? He is
--- NOTE | 2022-04-03 10:25 | PC.NURSE ---
To GI Lab per kelsey, IV RFA. Report given to Poornima RN/PT transported by Teja YU.
[2022-04-03 10:59] LABS: Glucose Point of Care 137 mg/dl (65-105)
[2022-04-03] MEDS: LACTATED RINGERS 1,000 ML 999 ML IV CONT (10:59)
--- NOTE | 2022-04-03 11:15 | WPDANESEPPF ---
Anes - Initial Pre Proc Eval Procedure: Operation Date: 03/31/22 12:00 Proposed Procedures p Left Heart Cath - Ed Gomez MD Operation Date: 04/03/22 10:15 Proposed Procedures p Laparoscopic Cholecystectomy - Shane Steiner MD Operation Date: 04/03/22 12:15 Proposed Procedures p Endoscopic Retro Cholangiopancreatogram - Teja Saini MD Date/Time: 04/03/22 11:15 Surgeon: Colin Bynum MD Pre Op Diagnosis: NSTEMI Patient Data Age: 72 Gender: M Height: 1.88 m Weight: 74.3 kg Last Vital Signs Temp 97.2 F L 04/03/22 10:46 Pulse 58 L 04/03/22 10:46 Resp 20 04/03/22 10:46 BP 118/71 04/03/22 10:46 Pulse Ox 94 04/03/22 10:46 O2 Del Method Room Air 04/03/22 10:46 Allergies Allergy/AdvReac Type Severity Reaction Status Date / Time midazolam Allergy Severe Hives / Verified 04/03/22 10:43 Red Face Home Medications Medication Instructions Recorded Confirmed Type amitriptyline 10 mg tablet 10 mg PO QHS 06/05/21 03/31/22 History aspirin 81 mg tablet,delayed 81 mg PO DAILY 06/05/21 03/31/22 History release clonazepam 1 mg tablet (Klonopin) 2 mg PO DAILY 06/05/21 03/31/22 History coenzyme Q10 30 mg capsule (Co 30 mg PO DAILY 06/05/21 03/31/22 History Q-10) folic acid-vit B6-vit B12 2.5 1 tablet PO DAILY 06/05/21 03/31/22 History mg-25 mg-2 mg tablet (Folbic) glyburide 2.5 mg-metformin 500 mg 1 tablet PO DAILY 06/05/21 03/31/22 History tablet oxycodone-acetaminophen 10 mg-325 1 tablet PO Q4-6H 06/05/21 03/31/22 History mg tablet simvastatin 40 mg tablet 40 mg PO DAILY 06/05/21 03/31/22 History methadone 10 mg tablet 20 mg PO Q12H 06/20/21 03/31/22 History Laboratory Tests 04/02/22 04/02/22 04/02/22 04:00 04:00 04:00 WBC RBC Hgb Hct MCV MCH MCHC RDW Plt Count MPV Immature Gran % (Auto) Neut % (Auto) Lymph % (Auto) [place] % (Auto) Eos % (Auto) Baso % (Auto) Lymph # (Auto) [place] # (Auto) Eos # (Auto) Baso # (Auto) Abs Immat Gran (auto) Absolute Neuts (auto) Absolute Nucleated RBC Nucleated RBC % Sodium Potassium Chloride Carbon Dioxide Anion Gap BUN Creatinine Estim Creat Clear Calc Estimated GFR Glucose POC Capillary Glucose Calcium Total Bilirubin AST ALT Alkaline Phosphatase Total Protein Albumin Urine Color Yellow (Yellow) Urine Appearance Clear (Clear) Urine pH 5.5 (5.0-9.0) Ur Specific [place] 1.020 (1.001-1.035) Urine Protein 1+ mg/dL H mg/dL (Negative) Urine Glucose (UA) Negative mg/dL mg/dL (Negative) Urine Ketones Negative mg/dL mg/dL (Negative) Ur Blood (Man) 1+ H (Negative) Urine Nitrate Negative (Negative) Urine Bilirubin Negative (Negative) Urine Urobilinogen 0.2 mg/dL mg/dL (<2.0) Ur Leukocyte Esterase Negative ANDREA/UL ANDREA/UL (NEGATIVE) Urine RBC 0-2 /hpf /hpf (0-2) Urine WBC 0-3 /hpf /hpf (0-3) Uric Acid Crystals Present /hpf H /hpf (None) Urine Bacteria Trace /hpf /hpf Urine Mucus Rare /lpf /lpf Urine Eosinophils None seen % % (None Seen) Ur Random Sodium 54 meq/L meq/L 04/02/22 04/02/22 04/02/22 11:41 16:52 20:25 WBC RBC Hgb Hct MCV MCH MCHC RDW Plt Count MPV Imm
[2022-04-03] MEDS: INDOMETHACIN 50 MG SUPP.RECT 100 MG RECTAL ×2 (11:44→11:46)
--- NOTE | 2022-04-03 13:29 | PC.NURSE ---
Returned from GI Lab. Report received from Briseida YU
[2022-04-03] MEDS: ASPIRIN 81 MG ENTERIC TABLET PO (13:38)
[2022-04-03] MEDS: ATORVASTATIN 40 MG TABLET 80 MG PO (13:38)
--- NOTE | 2022-04-03 15:21 | PCNFU ---
Nutrition Follow-Up Complete: Involuntary weight loss related to decreased appetite as evidenced by a self reported unintentional wt loss of 40lbs within a year. Goal: Continue eating 75% or more of meals. - Pt is meeting goal when on a PO diet, continue current goal Pt current nutrition is Clear Liquid. Last recorded weight is 74.3 kg, up 3.3kg from initial visit on 03/31. Bowel Motility: Last BM recorded on 03/30 Labs Reviewed: Hgb 10.9, Hct 33.7, Alb 2.9, GFR 50, BUN 27, Cr 1.4, Glu 167. Meds Noted: Zofran, Saline, NovoLog, Vit B complex Skin: WNL Additional Notes: Pt reports a good appetite and seems eager to eat. Pt is showing some weight gain from initial visit, about 3.3kgs. Diet supplements for Ensure Clear TID (240kcal, 8gm pro each). Monitor changes in wt, oral intake %, and labs every 5 days.
--- NOTE | 2022-04-03 15:28 | PCNSR ---
On 04/03/22, the student, Bianca Schaeffer, provided care and completed [facility] documentation on this patient. I have reviewed the student's documentation and agree with the findings.
[2022-04-03 16:29] LABS: Glucose Point of Care 233 mg/dl (65-105)
[2022-04-03] MEDS: INSULIN ASPART (*BKC) 100 UNITS/ML SUB-Q (17:06)
[2022-04-03] MEDS: oxyCODONE HCL (*CRX) 5 MG TAB IR PO (17:08)
[2022-04-03] MEDS: oxyCODONE/ACETAMINOPHEN (*CRX) 5-325 MG TABLET 1 TABLET PO (17:08)
[2022-04-03] MEDS: methADONE HCL (*CRX) 10 MG TABLET PO (20:16)
[2022-04-03] MEDS: AMITRIPTYLINE HCL 10 MG TABLET PO (20:16)
[2022-04-03 23:00] LABS: Glucose Point of Care 250 mg/dl (65-105)
[2022-04-04 03:19] VITALS: BP 118/77; PULSE 55; RESP 17; TEMP 35.7; O2SAT 95
[2022-04-04 05:44] LABS: Basophils Percent Auto 0.2 % (0.2-1.2); Hematocrit 36.4 % (42.0-52.0); Hemoglobin 12.1 g/dL (14.0-18.0); Immature Granulocyte Absolute 0.05 K/mm3 (0.00-0.031); Immature Granulocyte Percent A 0.5 % (0-0.5); Lymphocytes Absolute Auto 1.18 K/mm3 (0.9-3.2); Mean Corpuscular HGB Conc 33.2 g/dl (32-36); Mean Corpuscular Hemoglobin 33.4 pg (26-34); Mean Corpuscular Volume 100.6 fl (80-100); Mean Platelet Volume 12.7 fl (7.4-10.4); Monocytes Absolute Auto 0.5 K/mm3 (0.1-0.6); Monocytes Percent Auto 4.8 % (2.6-8.5); Neutrophils Percent Auto 83.5 % (45.5-73.1); Platelet Count Result 183 k/mm3 (150-375); Red Blood Count 3.62 M/mm3 (4.6-6.20); Red Cell Distribution Width 12.8 % (11.5-14.5); White Blood Count 10.7 K/mm3 (4.5-10.0)
[2022-04-04 05:54] LABS: Alanine Aminotransferase 8 U/L (6-50); Albumin Level 3.1 g/dL (3.5-5.1); Alkaline Phosphatase 68 U/L (38-126); Anion Gap 5 mmol/L (8-16); Aspartate Amino Transferase 21 U/L (17-59); Bilirubin,Total 0.3 mg/dL (0.2-1.3); Blood Urea Nitrogen 22 mg/dL (9-20); Carbon Dioxide 25 mmol/L (22-30); Chloride 109 mmol/L (98-107); Estimated CRCL calculation 53 ml/min; Estimated Glomerular Filt Rate 60; Glucose 190 mg/dL (65-110); Potassium 3.9 mmol/L (3.4-5.0); Sodium 139 mmol/L (137-145)
--- NOTE | 2022-04-04 07:42 | ECG_ITS ---
Measurements Intervals Bunch Rate: 57 P: -3 TN: 152 QRS: -25 QRSD: 86 T: 62 QT: 458 QTc: 446 Interpretive Statements SINUS BRADYCARDIA BASELINE WANDER- II, III, AVF, V4-V6 BORDERLINE ECG Electronically Signed On 04-04-2022 9:01:32 CDT by Orlando Rodriguez D.O.
[2022-04-04 07:43] LABS: Glucose Point of Care 205 mg/dl (65-105)
[2022-04-04 08:00] VITALS: BP 150/66; PULSE 53; RESP 14; TEMP 36.6; O2SAT 97
--- NOTE | 2022-04-04 08:06 | WPDANESPN ---
Anes - Prog Note Post-Op Date/Time: 04/04/22 08:06 Vital Signs: Last Vital Signs Temp 35.7 C L 04/04/22 03:19 Pulse 55 L 04/04/22 03:19 Resp 17 04/04/22 03:19 BP 118/77 04/04/22 03:19 Pulse Ox 95 04/04/22 03:19 O2 Del Method Room Air 04/03/22 20:00 Pain Score (VAS): 210 I/O: Intake & Output 04/03/22 04/04/22 04/04/22 23:59 07:59 15:59 Intake Total 1850 50 Output Total 500 1800 Balance 1350 -1750 Laboratory Tests 04/04/22 04:21 04/04/22 04:21 04/03/22 04/03/22 04/03/22 07:52 07:52 08:11 WBC 12.4 H RBC 3.22 L Hgb 10.9 L Hct 33.7 L MCV 104.7 H D MCH 33.9 MCHC 32.3 RDW 13.2 Plt Count 144 L MPV 12.2 H Immature Gran % (Auto) 0.4 Neut % (Auto) 79.9 H Lymph % (Auto) 12.6 L [place] % (Auto) 5.7 Eos % (Auto) 1.0 Baso % (Auto) 0.4 Lymph # (Auto) 1.56 [place] # (Auto) 0.7 H Eos # (Auto) 0.1 Baso # (Auto) 0.1 Abs Immat Gran (auto) 0.05 H Absolute Neuts (auto) 9.9 H Absolute Nucleated RBC 0.0 Nucleated RBC % 0.0 Sodium 137 Potassium 3.9 Chloride 105 Carbon Dioxide 26 Anion Gap 6 L BUN 27 H Creatinine 1.40 H Estim Creat Clear Calc 46 Estimated GFR 50 L Glucose 167 H POC Capillary Glucose 180 H Calcium 7.7 L Total Bilirubin 0.2 AST 18 ALT 6 Alkaline Phosphatase 55 Total Protein 6.0 L Albumin 2.9 L 04/03/22 04/03/22 04/03/22 10:55 16:20 20:19 WBC RBC Hgb Hct MCV MCH MCHC RDW Plt Count MPV Immature Gran % (Auto) Neut % (Auto) Lymph % (Auto) [place] % (Auto) Eos % (Auto) Baso % (Auto) Lymph # (Auto) [place] # (Auto) Eos # (Auto) Baso # (Auto) Abs Immat Gran (auto) Absolute Neuts (auto) Absolute Nucleated RBC Nucleated RBC % Sodium Potassium Chloride Carbon Dioxide Anion Gap BUN Creatinine Estim Creat Clear Calc Estimated GFR Glucose POC Capillary Glucose 137 H 233 H 250 H Calcium Total Bilirubin AST ALT Alkaline Phosphatase Total Protein Albumin 04/04/22 04/04/22 04/04/22 04:21 04:21 07:37 WBC 10.7 H RBC 3.62 L Hgb 12.1 L Hct 36.4 L MCV 100.6 H MCH 33.4 MCHC 33.2 RDW 12.8 Plt Count 183 MPV 12.7 H Immature Gran % (Auto) 0.5 Neut % (Auto) 83.5 H Lymph % (Auto) 11.0 L [place] % (Auto) 4.8 Eos % (Auto) 0.0 Baso % (Auto) 0.2 Lymph # (Auto) 1.18 [place] # (Auto) 0.5 Eos # (Auto) 0.0 Baso # (Auto) 0.0 Abs Immat Gran (auto) 0.05 H Absolute Neuts (auto) 9.0 H Absolute Nucleated RBC 0.0 Nucleated RBC % 0.0 Sodium 139 Potassium 3.9 Chloride 109 H Carbon Dioxide 25 Anion Gap 5 L BUN 22 H Creatinine 1.20 Estim Creat Clear Calc 53 Estimated GFR 60 Glucose 190 H POC Capillary Glucose 205 H Calcium 8.0 L Total Bilirubin 0.3 AST 21 ALT 8 Alkaline Phosphatase 68 Total Protein 6.0 L Albumin 3.1 L Patient Feedback: Patient satisfied with anesthetic care.
[2022-04-04] MEDS: INSULIN ASPART (*BKC) 100 UNITS/ML SUB-Q (08:43)
[2022-04-04] MEDS: ATORVASTATIN 40 MG TABLET PO (08:45)
[2022-04-04] MEDS: ASPIRIN 81 MG ENTERIC TABLET PO (08:46)
[2022-04-04] MEDS: methADONE HCL (*CRX) 10 MG TABLET PO ×2 (08:49→20:14)
[2022-04-04] MEDS: clonazePAM (*CRX) 0.5 MG TABLET 2 MG PO (08:49)
[2022-04-04] MEDS: SODIUM CHLORIDE 0.9% IV 1,000 ML 125 ML IV CONT (08:53)
--- NOTE | 2022-04-04 09:02 | PM.PNCARD ---
Progress Note: A&P Assessment and Plan (1) Chest pain: Code(s): R07.9 - Chest pain, unspecified Status: Acute Assessment and Plan: Somewhat atypical CP under a lot of stress, but with multiple risk factors including stroke s/p Right CEA, DM, smoking, dyslipidemia. Troponin mildly elevated and trending up currently at .082. EKG shows no acute ST abnormalities, cannot r/o septal infarct and inferior infarct, age indeterminate. Echo shows EF 60-65%, mild LVH, grade I diastolic dysfunction (E/e' 4), mild-mod MR, trace TR. On aspirin and Simvastatin. I consulted interventional cardiology with Dr. Gomez, and we agreed to hold off on cath, and assess with lexiscan myoview stress test to risk stratify. His chest pains appear to be more epigastric than lower sternal. In case he needs surgery or procedure for cholecystitis, we would not want to place a stent and need for dual antiplatelets for a non-ACS CAD. Lexiscan myoview stress test shows no ischemia. He is at low cardiac risk for noncardiac surgery which is cholecystectomy or ERCP and may proceed without further cardiac workup. Post op EKG shows sinus rhythm with no ischemia. Will sign off. Please call with any questions. Have him f/u with in 3-4 weeks upon discharge. (2) Dyslipidemia: Code(s): E78.5 - Hyperlipidemia, unspecified Status: Acute (3) Smoking: Code(s): F17.200 - Nicotine dependence, unspecified, uncomplicated Status: Deleted Assessment and Plan: Counseled regarding smoking cessation. (4) Elevated troponin: Code(s): R77.8 - Other specified abnormalities of plasma proteins Status: Acute Assessment and Plan: Troponin increased to 0.746. Probably due to cholecystitis. (5) Diabetes: Code(s): E11.9 - Type 2 diabetes mellitus without complications Status: Deleted Assessment and Plan: Managed by PCP. (6) Epigastric pain: Code(s): R10.13 - Epigastric pain Status: Acute Assessment and Plan: Resolved. CT abd shows dilated biliary ducts with possible ascending cholangitis. US abd shows cholecystitis. GI and General surgery following. S/P ERCP with stone extraction. Subjective Date/time seen: 04/04/22 09:02 No longer having chest pain or RUQ pain. No sob. Has chronic severe lower back pain. Exam Const: General: cooperative, healthy appearing and comfortable Resp: Auscultation: clear to auscultation bilaterally, no crackles, no rales, no rhonchi and no wheezes Cardio: Jugular venous distension: no JVD Rate: regular rate Rhythm: regular rhythm Heart sounds: no murmurs Peripheral pulses: dorsalis pedis present GI: GI Palp: No abdominal tenderness and Yes Soft to palpation Neuro: General: oriented to person, oriented to place and oriented to time Extrem: Right lower extremity: no edema Left lower extremity: no edema Objective Data Vital Signs Vital Signs: Vital Signs - 24 hr 04/03/22 09:24 04/03/22 10:46 04/03/22 12:20 Temperature 97.2 F L 97.8 F Pulse Rate 58 L 65 Respiratory Rate 20 20 Blood Pressure 114/63 118/71 126/69 Pulse Oximetry 94 100 Oxygen Delivery Room Air Room Air 04/03/22 12:30 04/03/22 12:40 04/03/22 12:50 Temperature Pulse Rate 57 L 56 L 57 L Respiratory Rate 20 20 20 Blood Pressure 136/80 122/81 124/80 Pulse Oximetry 100 100 100 Oxygen Delivery Room Air Room Air Room Air 04/03/22 12:58 04/03/22 13:10 04/03/22 14:00 Temperature 97.3 F L Pulse Rate 54 L 55 L 56 L Respiratory Rate 20 20 18 Blood Pressure 111/77 110/69 121/63 Pulse Oximetry 100 92 97 Oxygen Delivery Room Air Room Air 04/03/22 16:00 04/03/22 19:20 04/03/22 20:00 Temperature 97.8 F Pulse Rate 59 L Respiratory Rate 17 Blood Pressure 122/79 159/67 H Pulse Oximetry 94 Oxygen Delivery Room Air 04/04/22 03:19 04/04/22 08:00 Temperature 96.2 F L 98 F Pulse Rate 55 L 53 L Respiratory Rate 17 14 Blood Pressure 118/77 150/66 H
[2022-04-04 09:35] VITALS: O2SAT 95
--- NOTE | 2022-04-04 09:43 | PM.PNGS ---
Progress Note: A&P Assessment and Plan (1) Chronic cholecystitis due to cholelithiasis with choledocholithiasis: Code(s): K80.64 - Calculus of gallbladder and bile duct with chronic cholecystitis without obstruction Status: Acute Assessment and Plan: Patient seems to be pain free after ERCP yesterday. Will go ahead with low-fat diet. If tolerates without experiencing recurrence of right upper quadrant abdominal pain, he could be discharged tomorrow and scheduled for outpatient laparoscopic cholecystectomy in the near future. I will also go ahead and change his IV antibiotics to Augmentin which she can go home on for a few days as well. (2) Chronic prescription opiate use: Code(s): Z79.891 - care home (current) use of opiate analgesic Status: Chronic (3) Chronic back pain: Code(s): M54.9 - Dorsalgia, unspecified; G89.29 - Other chronic pain Status: Chronic Subjective Subjective Date/Time Seen: 04/04/22 09:43 Patient reports: pain is less, afebrile and other (Complains he is hungry) Interval history: I spoke with Dr. Saini yesterday. ERCP was successful and uncomplicated. This morning, patient complains he is hungry and his back is bothering him. He is not complaining of abdominal pain. Review of Systems Review of Systems: All systems reviewed & are unremarkable except as noted in HPI and below (HPI) Exam Const: General: cooperative, comfortable, no acute distress, alert and awake Nutritional Appearance: thin Orientation/consciousness: No confusion GI: Inspection: normal to inspection GI Palp: Yes Soft to palpation, No Tenderness to palpation present (GI) and No Palpable mass present Auscultation: normal bowel sounds Objective Data Vital Signs Vital Signs: Vital Signs - 24 hr 04/03/22 10:46 04/03/22 12:20 04/03/22 12:30 Temperature 36.2 C L 36.6 C Pulse Rate 58 L 65 57 L Respiratory Rate 20 20 20 Blood Pressure 118/71 126/69 136/80 Pulse Oximetry 94 100 100 Oxygen Delivery Room Air Room Air Room Air 04/03/22 12:40 04/03/22 12:50 04/03/22 12:58 Temperature Pulse Rate 56 L 57 L 54 L Respiratory Rate 20 20 20 Blood Pressure 122/81 124/80 111/77 Pulse Oximetry 100 100 100 Oxygen Delivery Room Air Room Air Room Air 04/03/22 13:10 04/03/22 14:00 04/03/22 16:00 Temperature 36.3 C L Pulse Rate 55 L 56 L Respiratory Rate 20 18 Blood Pressure 110/69 121/63 122/79 Pulse Oximetry 92 97 Oxygen Delivery Room Air 04/03/22 19:20 04/03/22 20:00 04/04/22 03:19 Temperature 36.6 C 35.7 C L Pulse Rate 59 L 55 L Respiratory Rate 17 17 Blood Pressure 159/67 H 118/77 Pulse Oximetry 94 95 Oxygen Delivery Room Air 04/04/22 08:00 Temperature 36.6 C Pulse Rate 53 L Respiratory Rate 14 Blood Pressure 150/66 H Pulse Oximetry 97 Oxygen Delivery Intake/Output Intake/Output: Intake & Output 04/01/22 04/02/22 04/03/22 04/04/22 23:59 23:59 23:59 23:59 Intake Total 1300 1520 5000 1290 Output Total 570 178 7899 1800 Balance 700 1120 3625 -510 Meds/Results Medications: Active Medications Generic Name Dose Route Start Last Admin Trade Name Freq PRN Reason Stop Dose Admin Amitriptyline HCl 10 mg 03/31/22 21:00 04/03/22 20:16 Amitriptyline Hcl 10 Mg Tablet PO 10 mg HS AB Administration Amoxicillin/Clavulanate Potassium 1 tablet 04/04/22 21:00 Amoxicillin/Clavulanate K 875-125 Mg Tab PO Q12HR AB Aspirin 81 mg 04/01/22 09:00 04/04/22 08:46 Aspirin 81 Mg Enteric Tablet PO 81 mg DAILY AB Administration Atorvastatin Calcium 40 mg 04/04/22 09:00 04/04/22 08:45 Atorvastatin 40 Mg Tablet PO 40 mg DAILY AB Administration Clonazepam 2 mg 04/01/22 09:00 04/04/22 08:49 Clonazepam (*Crx) 0.5 Mg Tablet PO 2 mg DAILY AB Administration Dextrose 12.5 gm 04/01/22 17:15 Dextrose 50% 25 Gm/50 Ml Syringe IV PUSH PRN PRN Hypoglycemia Protocol Folic Acid/Cyanocobalami
--- NOTE | 2022-04-04 10:17 | PM.IMPN ---
Progress Note: A&P Assessment and Plan (1) Elevated troponin: Code(s): R77.8 - Other specified abnormalities of plasma proteins Status: Acute (2) Smoking: Code(s): F17.200 - Nicotine dependence, unspecified, uncomplicated Status: Deleted (3) Dyslipidemia: Code(s): E78.5 - Hyperlipidemia, unspecified Status: Acute (4) Diabetes: Code(s): E11.9 - Type 2 diabetes mellitus without complications Status: Deleted (5) Chest pain: Code(s): R07.9 - Chest pain, unspecified Status: Acute (6) Acute non-ST elevation myocardial infarction (NSTEMI): Code(s): I21.4 - Non-ST elevation (NSTEMI) myocardial infarction Status: Acute (7) Tobacco abuse: Code(s): Z72.0 - Tobacco use Status: Chronic Plan # Chest pain lower substernal atypical. Initial troponin negative a 2nd set elevated suggestive of non ST-elevation [place]. EKG reviewed. Cardiology has been consulted. Could not lay down for him to get catheterization which was planned by Cardiology 03/31/2022. Echo ordered which revealed EF 60-65% grade 1 diastolic dysfunction [id number] MR. No wall motion abnormalities detected. On aspirin and atorvastatin. Check lipid profile. Also is a smoker has known risk factor. Atorvastatin now right admission was on simvastatin 40 mg daily. Low risk per Cardiology for planned surgical intervention # Non ST-elevation [place] see above. Troponin 10 rate up to 0.7 this morning. Stress test was risk stratification given the findings of gallbladder problem. Stress test negative # Abnormal CT scan with intra/extrahepatic biliary duct dilatation and pneumobilia with gallbladder on hydrops and biliary wall hyperemia findings suggestive of ascending cholangitis. Patient afebrile WBC count is mildly elevated will cover with IV antibiotics. Obtain blood cultures x2 which remains negative to date. GI consultation for further evaluation on this. Order right upper quadrant ultrasound to further evaluate. Started empirically on Zosyn to cover for ascending cholangitis. Right upper quadrant ultrasound came back positive for gallbladder sludge with gallbladder distention positive sonographic Palafox sign without pericholecystic fluid findings stable cholecystitis. There was also noted enlargement of the common bile duct unclear etiology to consider MRCP or ERCP. Awaiting GI evaluation. Keep NPO and IV antibiotics and IV fluids. Consulted General surgery Status post MRCP which reveals CBD stones. Plan for ERCP Status post ERCP 04/03/2022 with removal of 1 CBD stone. With no abdominal pain general surgery wants to do cholecystectomy as outpatient basis. Advance his diet today. If tolerates will switch antibiotics to oral and discharged home to follow-up with General surgery as an outpatient basis. # Abdominal aortic aneurysm 3.9 cm he has a known history of this # Hypertension home medication Hypotensive 04/02/2022 resolve with IV hydration. # Hyperlipidemia home medication # Chronic back pain on methadone and Percocet which is resumed # acute kidney injury creatinine bumped up to 2.1 04/02/2022 was normal on admission. Increased IV fluid unclear etiology. CK level was normal. Urine plan. Renal ultrasound without any signs obstruction. IV fluid started for renal failure. Renal failure has resolved today. Will discontinue IV fluid # DVT prophylaxis Lovenox # Code status full code Subjective Date/time seen: 04/04/22 10:17 Interval history: This is a 72-year-old male who presents to the ED with complaints of substernal chest pain that started yesterday.? Patient was resting while the chest pain started.? He denies any radiation to the back or to the neck.? He reports the chest pain is severe.? He denies any ongoing previous history of chest pain are coronary artery disease in the past.? Denies any associated nausea vomiting diarrhea or shortness of breath.? Denies any abd
[2022-04-04 11:32] LABS: Glucose Point of Care 172 mg/dl (65-105)
[2022-04-04] MEDS: oxyCODONE/ACETAMINOPHEN (*CRX) 5-325 MG TABLET 1 TABLET PO ×2 (12:31→17:05)
[2022-04-04 15:55] VITALS: BP 138/89; PULSE 65; RESP 16; TEMP 36.8; O2SAT 97
[2022-04-04 16:20] LABS: Glucose Point of Care 175 mg/dl (65-105)
[2022-04-04] MEDS: oxyCODONE HCL (*CRX) 5 MG TAB IR PO (17:06)
[2022-04-04 19:43] VITALS: BP 143/57; PULSE 51; RESP 12; TEMP 36.4; O2SAT 94
[2022-04-04] MEDS: AMITRIPTYLINE HCL 10 MG TABLET PO (20:13)
[2022-04-04] MEDS: AMOXICILLIN/CLAVULANATE K 875-125 MG TAB 1 TABLET PO (20:13)
[2022-04-04 20:24] LABS: Glucose Point of Care 201 mg/dl (65-105)
[2022-04-05] MEDS: oxyCODONE HCL (*CRX) 5 MG TAB IR PO ×2 (01:29→06:56)
[2022-04-05] MEDS: oxyCODONE/ACETAMINOPHEN (*CRX) 5-325 MG TABLET 1 TABLET PO ×2 (01:30→06:57)
[2022-04-05] MEDS: SODIUM CHLORIDE 0.9% IV 1,000 ML 60 ML IV CONT (02:48)
[2022-04-05 04:01] VITALS: BP 160/66; PULSE 54; RESP 12; TEMP 36.4; O2SAT 98
[2022-04-05 05:48] LABS: Basophils Absolute Auto 0.1 K/mm3 (0.0-0.1); Basophils Percent Auto 0.5 % (0.2-1.2); Eosinophils Absolute Auto 0.1 K/mm3 (0-0.3); Eosinophils Percent Auto 1.1 % (0-4.4); Hematocrit 34.6 % (42.0-52.0); Hemoglobin 11.3 g/dL (14.0-18.0); Immature Granulocyte Absolute 0.04 K/mm3 (0.00-0.031); Immature Granulocyte Percent A 0.4 % (0-0.5); Lymphocytes Absolute Auto 2.64 K/mm3 (0.9-3.2); Lymphocytes Percent Auto 27.8 % (18.3-44.2); Mean Corpuscular HGB Conc 32.7 g/dl (32-36); Mean Corpuscular Hemoglobin 33.3 pg (26-34); Mean Corpuscular Volume 102.1 fl (80-100); Mean Platelet Volume 11.7 fl (7.4-10.4); Monocytes Absolute Auto 0.6 K/mm3 (0.1-0.6); Monocytes Percent Auto 6.4 % (2.6-8.5); Neutrophils Absolute Auto 6.1 K/mm3 (1.3-6.7); Neutrophils Percent Auto 63.8 % (45.5-73.1); Platelet Count Result 168 k/mm3 (150-375); Red Blood Count 3.39 M/mm3 (4.6-6.20); White Blood Count 9.5 K/mm3 (4.5-10.0)
[2022-04-05 05:57] LABS: Alanine Aminotransferase 10 U/L (6-50); Albumin Level 2.9 g/dL (3.5-5.1); Alkaline Phosphatase 52 U/L (38-126); Anion Gap 3 mmol/L (8-16); Aspartate Amino Transferase 21 U/L (17-59); Bilirubin,Total 0.3 mg/dL (0.2-1.3); Blood Urea Nitrogen 15 mg/dL (9-20); Calcium 7.9 mg/dL (8.4-10.2); Carbon Dioxide 29 mmol/L (22-30); Chloride 107 mmol/L (98-107); Estimated CRCL calculation 65 ml/min; Estimated Glomerular Filt Rate > 60; Glucose 190 mg/dL (65-110); Potassium 3.9 mmol/L (3.4-5.0); Sodium 139 mmol/L (137-145)
[2022-04-05 07:30] LABS: Glucose Point of Care 184 mg/dl (65-105)
[2022-04-05 07:51] VITALS: BP 149/99; PULSE 60; RESP 14; TEMP 36; O2SAT 94
[2022-04-05] MEDS: ATORVASTATIN 40 MG TABLET PO (08:34)
[2022-04-05] MEDS: ASPIRIN 81 MG ENTERIC TABLET PO (08:34)
[2022-04-05] MEDS: AMOXICILLIN/CLAVULANATE K 875-125 MG TAB 1 TABLET PO (08:34)
[2022-04-05] MEDS: clonazePAM (*CRX) 0.5 MG TABLET 2 MG PO (08:42)
[2022-04-05] MEDS: methADONE HCL (*CRX) 10 MG TABLET PO (08:43)
--- NOTE | 2022-04-05 09:35 | PM.PNGS ---
Progress Note: A&P Assessment and Plan (1) Chronic cholecystitis due to cholelithiasis with choledocholithiasis: Code(s): K80.64 - Calculus of gallbladder and bile duct with chronic cholecystitis without obstruction Status: Acute Assessment and Plan: discussed with hospitalist, Dr. Bynum. patient tolerating low-fat diet. Okay to discharge from my standpoint and we will call him on Wednesday or Wednesday this week to schedule outpatient laparoscopic cholecystectomy. I discussed the need for the surgery to prevent further recurrences of his present illness. I discussed this procedure with the patient again. I explained the conduct of the procedure as well as the potential complications. I discussed the usual recovery and that this is typically an outpatient procedure. All questions were answered. He understands and agrees with the above plan. 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 Status: Chronic Subjective Subjective Date/Time Seen: 04/05/22 09:35 Patient reports: no new complaints, feels better, tolerating a regular diet ( low-fat diet) and afebrile Review of Systems Review of Systems: All systems reviewed & are unremarkable except as noted in HPI and below ( HPI) Exam Const: General: cooperative, comfortable, no acute distress, alert and awake Nutritional Appearance: thin Orientation/consciousness: No confusion GI: Inspection: normal to inspection, non-distended and scaphoid GI Palp: Yes Soft to palpation, No Tenderness to palpation present (GI), No Guarding due to palpation present (GI), No Palpable mass present and No Rebound tenderness present Auscultation: normal bowel sounds Neuro: General: no focal motor deficits and No confusion Extrem: General: no calf tenderness and no edema Psych: Appearance: grossly normal Speech and movement: Clear speech present; No Restless speech present Affect: Blunted affect present Attitude: cooperative Insight: Fair insight present (Psych) Judgement: Fair judgement present (Psych) Objective Data Vital Signs Vital Signs: Vital Signs - 24 hr 04/04/22 15:55 04/04/22 19:43 04/04/22 19:51 Temperature 36.8 C 36.4 C Pulse Rate 65 51 L Respiratory Rate 16 12 Blood Pressure 138/89 143/57 H Pulse Oximetry 97 94 Oxygen Delivery Room Air 04/05/22 04:01 04/05/22 07:51 Temperature 36.4 C 36.0 C L Pulse Rate 54 L 60 Respiratory Rate 12 14 Blood Pressure 160/66 H 149/99 H Pulse Oximetry 98 94 Oxygen Delivery Intake/Output Intake/Output: Intake & Output 04/02/22 04/03/22 04/04/22 04/05/22 23:59 23:59 23:59 23:59 Intake Total 1520 5000 3070 100 Output Total 400 1375 3100 1500 Balance 1120 8160 -06 -9519 Meds/Results Medications: Active Medications Generic Name Dose Route Start Last Admin Trade Name Freq PRN Reason Stop Dose Admin Amitriptyline HCl 10 mg 03/31/22 21:00 04/04/22 20:13 Amitriptyline Hcl 10 Mg Tablet PO 10 mg HS AB Administration Amoxicillin/Clavulanate Potassium 1 tablet 04/04/22 21:00 04/05/22 08:34 Amoxicillin/Clavulanate K 875-125 Mg Tab PO 1 tablet Q12HR AB Administration Aspirin 81 mg 04/01/22 09:00 04/05/22 08:34 Aspirin 81 Mg Enteric Tablet PO 81 mg DAILY AB Administration Atorvastatin Calcium 40 mg 04/04/22 09:00 04/05/22 08:34 Atorvastatin 40 Mg Tablet PO 40 mg DAILY AB Administration Clonazepam 2 mg 04/01/22 09:00 04/05/22 08:42 Clonazepam (*Crx) 0.5 Mg Tablet PO 2 mg DAILY AB Administration Dextrose 12.5 gm 04/01/22 17:15 Dextrose 50% 25 Gm/50 Ml Syringe IV PUSH PRN PRN Hypoglycemia Protocol Folic Acid/Cyanocobalamin/pyridoxin 1 tab 04/01/22 09:00 04/05/22 08:43 Cyanocobalamin/Fa/Pyridoxine (Foltx) Tablet PO 1 ta
--- NOTE | 2022-04-05 10:25 | PM.DS ---
DS: Admitting Diagnosis Discharge Date 04/05/2022 Admitting Diagnosis Chest pain DS: Discharge Diagnosis Discharge Diagnosis (1) Elevated troponin: Code(s): R77.8 - Other specified abnormalities of plasma proteins Status: Acute (2) Smoking: Code(s): F17.200 - Nicotine dependence, unspecified, uncomplicated Status: Deleted (3) Dyslipidemia: Code(s): E78.5 - Hyperlipidemia, unspecified Status: Acute (4) Diabetes: Code(s): E11.9 - Type 2 diabetes mellitus without complications Status: Deleted (5) Chest pain: Code(s): R07.9 - Chest pain, unspecified Status: Acute (6) Acute non-ST elevation myocardial infarction (NSTEMI): Code(s): I21.4 - Non-ST elevation (NSTEMI) myocardial infarction Status: Acute (7) Tobacco abuse: Code(s): Z72.0 - Tobacco use Status: Chronic Plan # Chest pain lower substernal atypical. Initial troponin negative a 2nd set elevated suggestive of non ST-elevation HI. EKG reviewed. Cardiology was consulted. Initially diagnosed with non ST-elevation HI due to troponin rise and chest pain. Was planned for cardiac catheterization on 03/31/2022 but he was Not able to lay down and hence was canceled. Echo ordered which revealed EF 60-65% grade 1 diastolic dysfunction [id number] MR. No wall motion abnormalities detected. He was started On aspirin and atorvastatin. Lipid profile was checked. LDL was 73. He is also a smoker as an known risk factor. He was switched to atorvastatin from simvastatin. Subsequently his symptomatology more suggestive due to his gallbladder issues which was revealed on further evaluation. He will continue to follow-up with cardiology as an outpatient basis. Alfredito undergo stress test during the hospital stay which came back negative. # Non ST-elevation HI see above. The initially suspected type 1 HI later his presentation was more suggestive type 2 HI due to underlying infection. Stress test was risk stratification given the findings of gallbladder problem. Stress test negative # Abnormal CT scan with intra/extrahepatic biliary duct dilatation and pneumobilia with gallbladder on hydrops and biliary wall hyperemia findings suggestive of ascending cholangitis. Patient afebrile but WBC count is mildly elevated. He was started on IV Zosyn for possible ascending cholangitis. Blood cultures were obtained which remained negative throughout the hospital stay. GI was consulted for further evaluation. Right upper quadrant ultrasound was obtained which revealed gallbladder sludge with gallbladder distention positive Palafox's sign without pericholecystic fluid, findings suggestive of acute cholecystitis. There was also noted enlargement of the common bile duct etiology unclear. Chronic opiate at home his chronic back pain and initially suspected common bile duct dilatation to be related to his chronic opiate use. He underwent MRCP for further evaluation which did reveal CBD stone. GI took him for an ERCP on 04/03/2022 with successful removal of 1 CBD stone. He was planned for cholecystectomy however since improvement in his symptoms plan for outpatient cholecystectomy next week. He was okayed per General surgery to discharge. He was advanced on his diet which he tolerated well. He will continue on oral antibiotics at discharge. # Abdominal aortic aneurysm 3.9 cm he has a known history of this # Hypertension home medication Hypotensive 04/02/2022 resolved with IV hydration. # Hyperlipidemia home medication # Chronic back pain on methadone and Percocet which is resumed during the hospital stay # acute kidney injury creatinine bumped up to 2.1 04/02/2022 was normal on admission. Increased IV fluid unclear etiology. CK level was normal. Urine bland. Renal ultrasound without any signs obstruction. IV fluid started for renal failure. Acute renal failure resolved during the hospital stay with IV hydrati
== END 2022-04-05 11:46 | disposition home or self-care (01) | DRG 444 ==
LOC: ANHED 03-31 03:08 → ANHIMU 03-31 03:31 → ANH2MED 04-02 16:20
PROVIDERS: Internal Medicine Cardiovascular Disease; Internal Medicine Gastroenterology; Admitting Provider Internal Medicine; Emergency Provider Emergency Medicine; PCP Internal Medicine; Visit Provider Internal Medicine
PROC: 0FC98ZZ Extirpation of Matter from Common Bile Duct, Via Natural or Artificial Opening Endoscopic (ICD-10-PCS; CPT 43260; principal; 2022-04-03 12:15)
DX: K80.64 Calculus of gallbladder and bile duct with chronic cholecystitis without obstruction (principal); I21.A1 Myocardial infarction type 2; N17.9 Acute kidney failure, unspecified; E78.5 Hyperlipidemia, unspecified; E11.9 Type 2 diabetes mellitus without complications; F17.210 Nicotine dependence, cigarettes, uncomplicated; I10 Essential (primary) hypertension; K83.8 Other specified diseases of biliary tract; G89.29 Other chronic pain; I71.4 Abdominal aortic aneurysm, without rupture; K21.9 Gastro-esophageal reflux disease without esophagitis; Z79.899 Other long term (current) drug therapy; Z79.82 Long term (current) use of aspirin; Z86.73 Personal history of transient ischemic attack (TIA), and cerebral infarction without residual deficits; Z79.891 Long term (current) use of opiate analgesic
CPT/HCPCS: 36415; 71275; 74175; 74181; 74329; 76376; 76705; 76775; 78452; 80053; 80061; 81001; 81003; 82550; 82948; 83690; 83735; 84300; 84484; 85025; 85610; 85730; 85999; 87040; 93005; 93017; 93306; 96361; 96374; 99285; A9270; A9502; J0330; J1100; J1650; J1815; J2270; J2405; J2543; J2704; J2785; J3475; J7030; J7040; J7120; Q9967

== ENCOUNTER 2022-04-14 13:37 | Outpatient (CLI) | payer MEDICARE, SELFPAY ==
[2022-04-14 14:22] LABS: Alanine Aminotransferase 7 U/L (6-50); Alkaline Phosphatase 72 U/L (38-126); Amylase 53 U/L (30-110); Aspartate Amino Transferase 23 U/L (17-59); Bilirubin,Total 0.2 mg/dL (0.2-1.3); Lipase 41 U/L (23-300)
== END 2022-04-14 13:38 | disposition home or self-care (01) ==
LOC: ANHSURGERY 13:42
PROVIDERS: PCP Internal Medicine; Visit Provider Surgery
DX: K80.64 Calculus of gallbladder and bile duct with chronic cholecystitis without obstruction (principal)
CPT/HCPCS: 36415; 80076; 82150; 83690; 86850; 86900; 86901

== ENCOUNTER 2022-04-15 01:23 | Day surgery (SDC) | payer MEDICARE, SELFPAY ==
--- NOTE | 2022-04-13 12:40 | PC.NURSE ---
Report to the Outpatient Waiting Room, entrance under the green pavilion located off [facility], at time __0830 on date ___04/15/22____. OR Time: _1030 . - You and your visitor will be asked a series of questions to screen for COVID 19 for your protection. - Only one visitor is allowed at this time. - The patient visitor is requested to leave or wait in car when not with patient. - A mask is required within the hospital. Patients may have clear liquids (water, carbonated beverages, clear teas, apple juice) until 3 hours prior to surgery with a maximum of 20 ounces. - No food from midnight until time of surgery - Infants may have breast milk until 4 hours before surgery, infant formula 6 hours prior to surgery. - Children will be allowed to drink immediately following surgery. If applicable, please bring a bottle or sippy cup to assist with drinking. Juice, water, soda, and popsicles are readily available. For infants on formula, please bring formula the day of surgery. Pacifiers are allowed. Take the following medications with a SIP of water the morning of surgery: ____CLONAZEPAM,PERCOCET Medications to discontinue per physician ALL VITAMINS AND SUPPLEMENTS 3 DAYS PRE OP Date to take last dose____04/12/22 Please no make-up, nail chilean, hairspray, perfume, deodorant, or body powder the day of surgery. No jewelry (including any body piercings) or valuables the day of surgery, leave them at home. Please take a shower or bath the night before, or the morning of, surgery with an antibacterial soap. Wear comfortable, loose fitting clothing. Children are encouraged to wear pajamas. - Jewelry must be removed prior to entering the operating room. Rings and piercings that are not removed may be cut off. - The hospital will not accept responsibility for valuables. HIBICLENS SHOWER MORNING OF SURGERY - Please leave all valuables, including medications, at home the day of surgery. If you are going home after surgery, a licensed electric lift truck driver must drive you home. - NO public transportation without another adult. - We recommend that an adult stay with you for 24 hours following discharge. - We also recommend that you do not drive, make important decision, drink alcoholic beverages, or take any drugs that were not prescribed by your health care provider for at least 24 hours after your discharge time. For Pediatric surgeries, we recommend two adults accompany the child home (only one inside the building at this time). Follow any additional instructions given to you from your surgeon. If you or anyone in your household have experienced Covid symptoms in the past week, please notify your surgeon or the nurse liaison at the phone number below for possible testing. Telephone instructions given to PATIENT and asked if any additional questions and then verbalized understanding. Patient advised to call surgeon office or pre surgery nurse liaison [phone] if any additional questions.
[2022-04-13 12:51] VITALS: BMI 20.5
--- NOTE | 2022-04-14 12:12 | WPDANESEPPF ---
Anes - Initial Pre Proc Eval Procedure: Operation Date: 04/15/22 10:30 Proposed Procedures p Laparoscopic Cholecystectomy - Shane Steiner MD Date/Time: 04/14/22 12:12 Surgeon: Shane Steiner MD Pre Op Diagnosis: Chronic Cholecystitis Due to Cholelithiasis Patient Data Age: 72 Gender: M Height: 1.88 m Weight: 72.6 kg Allergies Allergy/AdvReac Type Severity Reaction Status Date / Time midazolam Allergy Severe Hives / Verified 04/15/22 08:47 Red Face Home Medications Medication Instructions Recorded Confirmed Type amitriptyline 10 mg tablet 10 mg PO QHS 06/05/21 04/15/22 History aspirin 81 mg tablet,delayed 81 mg PO DAILY 06/05/21 04/15/22 History release clonazepam 1 mg tablet (Klonopin) 2 mg PO DAILY 06/05/21 04/15/22 History coenzyme Q10 30 mg capsule (Co 30 mg PO DAILY 06/05/21 04/15/22 History Q-10) folic acid-vit B6-vit B12 2.5 1 tablet PO DAILY 06/05/21 04/15/22 History mg-25 mg-2 mg tablet (Folbic) glyburide 2.5 mg-metformin 500 mg 1 tablet PO DAILY 06/05/21 04/15/22 History tablet oxycodone-acetaminophen 10 mg-325 1 tablet PO Q4-6H 06/05/21 04/15/22 History mg tablet simvastatin 40 mg tablet 40 mg PO DAILY 06/05/21 04/15/22 History methadone 10 mg tablet 10 mg PO Q12H #1 tablet 04/05/22 04/15/22 Rx Other studies: EXAMINATION: NM mally stress w perfusion DATE: 04/01/2022 13:26 INDICATION: Chest pain TECHNIQUE: Rest images were obtained following intravenous administration of 10.1 mCi Tc99m tetrofosmin (Myoview). The patient was infused intravenously with Lexiscan (Regadenoson). Then, 22.1 mCi Tc99m tetrofosmin (Myoview) was administered intravenously, and stress images were obtained. Data was reconstructed into short axis and horizontal and vertical long axis SPECT images. Gated SPECT images were also obtained. COMPARISON: None. FINDINGS: There is no definite reversible or fixed perfusion abnormality to suggest ischemia or infarction.? There is normal left ventricular chamber size and wall motion with borderline left ventricular ejection fraction measuring 44%. IMPRESSION: 1. Normal myocardial perfusion at rest and during stress. 2. Borderline left ventricular ejection fraction measuring 44%. COMPARISON: CT dated 03/25/2022 FINDINGS: Consolidation in the dependent right lower lobe with additional more linear bands of discoid atelectasis/scarring in the dependent left lower lobe. Heart size is normal. No pericardial or pleural effusion. There is prominent wall thickening of the sludge-filled gallbladder with prominent pericholecystic soft tissue edema consistent with acute cholecystitis. There is mild dilation of the common bile duct which measures up to 8 mm in maximal diameter. There is a 3-4 mm gallstone in the distalmost common bile duct. There are a couple additional similar sized filling defects in the proximal common bile duct which appear different positions on appearing sequences suggesting additional mobile small gallstones. There is mild intrahepatic biliary ductal dilation with left hepatic lobe predominance. There is also diffuse periportal edema likely related to acute cholecystitis. Pancreas is normal with normal caliber main pancreatic duct. Spleen and bilateral adrenal glands are normal. Bilateral T2 hyperintense renal cysts the largest on the right measuring 2.6 cm. Visualized portion of the bowels are unremarkable with no dilated bowel to suggest obstruction. No pathologically enlarged abdominal lymphadenopathy. Retroperitoneal edema, right greater than left. Ectatic infrarenal abdominal aorta measuring up to 3.4 cm in maximal diameter. Mild thoracic and lumbar spondylosis. Normal bone marrow signal throughout. IMPRESSION: 1. Choledocholithiasis including 3-4 mm stone at the distalmost common bile duct with mild intra and extra hepatic biliary ductal dilation. Consider ERCP. 2. Acute cholecystitis. 3. Consolidation in the right lower lobe which could repre
[2022-04-15] VITALS (7 sets, daily range): BP systolic 122–158; BP diastolic 50–71; PULSE 60–65; RESP 12–18; TEMP 36.2–36.7; O2SAT 95–100
[2022-04-15] MEDS: LACTATED RINGERS 1,000 ML 30 ML IV CONT ×2 (09:13→11:46)
[2022-04-15] MEDS: KETOROLAC 15 MG/ML VIAL (*BKC) IV PUSH (09:13)
[2022-04-15 09:20] LABS: Glucose Point of Care 184 mg/dl (65-105)
--- NOTE | 2022-04-15 09:35 | WPDHPUPDATE1 ---
History and Physical Update Update Date/Time: 04/15/22 09:35 History and Physical has been reviewed, including an updated exam of the patient. There are NO changes in the patient's condition. Risks, benefits, and alternatives have been discussed and questions answered. Patient agrees to proceed with procedure.
[2022-04-15] MEDS: methADONE HCL (*CRX) 10 MG TABLET PO (09:39)
--- NOTE | 2022-04-15 09:51 | W.PM.PROC2 ---
Procedure Note - Detailed Date of Procedure 04/15/22 Pre-op Diagnosis Chronic Cholecystitis Due to Cholelithiasis with choledocholithiasis Post-op Diagnosis Other (Choledocholithiasis, chronic cholecystitis with cystic duct obstruction, hydrops) Procedure Performed Laparoscopic cholecystectomy Surgeon Shane Steiner MD [facility] Anesthesia General and Local (0.25% bupivacaine with epinephrine) Indications Patient is a 72-year-old man who was admitted to the hospital in late March with severe chest pain and epigastric pain. His cardiac workup was negative. He had elevated LFTs and evidence of gallstones with cholecystitis. His symptoms improved with antibiotic therapy. He had an MRCP which showed common bile duct stones. Dr. Saini performed an ERCP which was successful in removing the common bile duct stone. Patient was comfortable on a low-fat diet and was discharged with plans to bring him back in the near future for laparoscopic cholecystectomy. He is taken to surgery at this time for that purpose. Findings Severe chronic inflammation, gallstones Description of Procedure Patient was taken to surgery and induced into general anesthesia. The abdomen was prepped and draped. Trocars were placed in the usual fashion using local anesthetic and applied Medical optical trocars. A 5 mm camera was used. The gallbladder was distended and clearly thickened with a very thickened wall consistent with chronic inflammation. Laparoscopic aspirator was used and the gallbladder blood was decompressed. The contents of the gallbladder was clear consistent with hydrops. Stones were evident in the gallbladder. There were numerous adhesions to the gallbladder not only of omentum but also bowel. This seemed to be part of the transverse colon as I thought I saw tenia. It could have been some of the duodenum as well. This bowel was carefully dissected off the lower half of the gallbladder taking care not to injure the bowel. The dissection was bloody consistent with the state of chronic inflammation and pretty dense adherence to the gallbladder. Eventually the adhesions were taken down completely and the infundibulum of the gallbladder was exposed. The gallbladder was difficult to retract as it had a very thickened wall and even when it had been decompressed it was quite difficult to grasp. We ended up using a laparoscopic tenaculum to adequately grasp the gallbladder for retraction. Eventually the gallbladder was dissected so that it could be retracted anterosuperiorly. There was a fair amount of bloody ooze from the dissection but no significant bleeding occurred throughout the surgery. We suctioned away all of the blood that had accumulated from freeing the gallbladder from adhesions. After we exposed the gallbladder and retracted it we then proceeded with dissection in the triangle of Calot. This dissection was difficult as well. There were dense adhesions and the gallbladder was adherent to the liver throughout. Using a combination of blunt and sharp dissection, I was able to dissect out the cystic duct. The cystic duct itself was short and slightly dilated consistent with the history of common bile duct stones. I dissected behind the cystic duct and eventually found the cystic artery. We continued the dissection and freed the gallbladder from the thickened and fibrotic peritoneum investing it. All this dissection was associated with some oozing of blood as well. Eventually the cystic duct and cystic artery were dissected out clearly The gallbladder had also been dissected off the liver at its lower 3rd. Critical view was achieved. We then securely clipped and divided the cystic artery. The cystic duct was short and pretty dilated. A clip was placed on the very proximal cystic duct near the gallbladder. The cystic duct was then divided close to this clip. I then used a Vicryl endoloop and ligated the cystic duct near the common bile
[2022-04-15] MEDS: ceFAZolin 2 GM/D5W 50 ML 2 GM/50 ML BAG IVPB (09:55)
[2022-04-15] MEDS: BUPIVACAINE/EPINEPHRINE 0.25% 50 ML VIAL INFILTRATE (10:35)
[2022-04-15 12:02] LABS: Glucose Point of Care 235 mg/dl (65-105)
--- NOTE | 2022-04-15 12:15 | SUR.PHASEI ---
Dr. No aware of B. No further orders at this time.
--- NOTE | 2022-04-15 12:21 | SUR.PHASEI ---
1218: Simple mask removed.
== END 2022-04-15 14:14 | disposition home or self-care (01) ==
PROVIDERS: PCP Internal Medicine; Visit Provider Surgery
PROC: 0FT44ZZ Resection of Gallbladder, Percutaneous Endoscopic Approach (ICD-10-PCS; CPT 47562; principal; 2022-04-15 11:30)
DX: K80.47 Calculus of bile duct with acute and chronic cholecystitis with obstruction (principal); K82.1 Hydrops of gallbladder; I71.4 Abdominal aortic aneurysm, without rupture; E78.5 Hyperlipidemia, unspecified; E11.9 Type 2 diabetes mellitus without complications; K21.9 Gastro-esophageal reflux disease without esophagitis; I25.2 Old myocardial infarction; Z79.891 Long term (current) use of opiate analgesic; F17.210 Nicotine dependence, cigarettes, uncomplicated
CPT/HCPCS: 47562; 82948; 88304; A9270; C1713; J0690; J1100; J1170; J1885; J2405; J2704; J2710; J3010; J7120

== ENCOUNTER 2023-07-06 11:05 | Outpatient (CLI) | payer MEDICARE, SELFPAY ==
--- NOTE | ~2023-07-06 | XR_ITS ---
AP and lateral views of the left hip Clinical history: Pain Findings: No acute fracture or dislocation is seen. Osseous alignment is anatomic. Left hip joint is preserved. Soft tissues are unremarkable. Impression: No significant abnormality is seen. Reviewed, dictated and finalized at location M. Impression: No significant abnormality is seen.
== END 2023-07-06 11:06 | disposition home or self-care (01) ==
PROVIDERS: PCP Internal Medicine; Visit Provider Internal Medicine
DX: M25.552 Pain in left hip (principal); R10.32 Left lower quadrant pain
CPT/HCPCS: 73502

== ENCOUNTER 2023-12-03 16:21 | Emergency (ER) | payer MEDICARE, SELFPAY ==
--- NOTE | ~2023-12-03 | CT_ITS ---
EXAMINATION: CT tibia/fibula RT w con DATE: 12/03/2023 18:53 INDICATION: Soft tissue laceration of the right leg TECHNIQUE: Computed tomography (CT) of the right tibia and fibula was performed with 100 cc of Omnipa que 350 intravenous contrast. The dose-length product (DLP) was 1122.54 mGy-cm. Automated exposure co ntrol and iterative reconstruction technique were employed. COMPARISON: None FINDINGS: An intramedullary eusebio is present in the tibia. There is a healed fracture of the distal tib ia. There is the medial soft tissue laceration of the leg overlying the tibia. An associated soft tis janice hematoma is identified. No underlying osseous abnormality is identified. No associated radiopaque foreign body is seen. There is calcified atherosclerosis with moderate stenosis of the tibial perone al trunk. The anterior tibial artery is occluded at its origin with a few areas of short segmental re constitution. The posterior tibial and peroneal arteries are patent. There is a two-vessel runoff at the ankle. IMPRESSION: 1. Medial soft tissue laceration of the leg overlying the tibia without underlying osseous abnormalit y or radiopaque foreign body identified. 2. Peripheral vascular disease. Reviewed, dictated and finalized at location F. [employer] IMPRESSION: 1. Medial soft tissue laceration of the leg overlying the tibia without underly ing osseous abnormality or radiopaque foreign body identified. 2. Peripheral vascular disease.
[2023-12-03 16:35] VITALS: BP 138/88; PULSE 71; RESP 16; TEMP 36.6; O2SAT 97
--- NOTE | 2023-12-03 17:56 | ED.GENADULT ---
HPI - General Adult General Chief complaint: Fall Stated complaint: fall Time Seen by Provider: 12/03/23 17:38 Source: patient Mode of arrival: ambulatory Limitations: no limitations History of Present Illness HPI narrative: This is a 73-year-old male with PMH of a T2 dm, AAA, CAD who presents to the ED with chief complaint of a mechanical fall that occurred around 14 20 today. Patient reports that he was walking through the [place] and tripped over a stick. He thinks that beavers have been chewing down trees and suspects he tripped over one of these fallen branches. Reports a puncture type injury through his jeans into the right dowell causing laceration. He was able to walk. He states he tried to pinch the wound closed. It has been slowly bleeding ever since. He takes aspirin daily but no blood thinners. Denies numbness, weakness or difficulty with ambulation. Related Data Home Medications Medication Instructions Recorded Confirmed amitriptyline 10 mg tablet 10 mg PO QHS 06/05/21 05/01/22 aspirin 81 mg tablet,delayed 81 mg PO DAILY 06/05/21 05/01/22 release clonazepam 1 mg tablet (Klonopin) 2 mg PO DAILY 06/05/21 05/01/22 coenzyme Q10 30 mg capsule (Co 30 mg PO DAILY 06/05/21 05/01/22 Q-10) folic acid-vit B6-vit B12 2.5 1 tablet PO DAILY 06/05/21 05/01/22 mg-25 mg-2 mg tablet (Folbic) glyburide 2.5 mg-metformin 500 mg 1 tablet PO DAILY 06/05/21 05/01/22 tablet oxycodone-acetaminophen 10 mg-325 1 tablet PO Q4-6H 06/05/21 05/01/22 mg tablet simvastatin 40 mg tablet 40 mg PO DAILY 06/05/21 05/01/22 Allergies Allergy/AdvReac Type Severity Reaction Status Date / Time midazolam Allergy Severe Hives / Verified 04/30/22 09:18 [place] Review of Systems Review of Systems: All systems as dictated in [facility] Past Medical History Medical History (Updated 12/04/23 @ 00:00 by Background Daemon) AAA (abdominal aortic aneurysm) Ectatic infrarenal abdominal aorta measuring up to 3.4 cm in maximal diameter. 03/2022 Acute non-ST elevation myocardial infarction (NSTEMI) Chronic back pain Chronic prescription opiate use CVA (cerebral vascular accident) Dyslipidemia GERD (gastroesophageal reflux disease) Tobacco abuse Type 2 diabetes mellitus Surgical History Surgical History (Updated 04/30/22 @ 09:19 by SCOTTY Hernández) History of right-sided carotid endarterectomy Hx laparoscopic cholecystectomy 04/15/2022 Family History Family History Mother Hodgkins disease Father Hypertension Sibling Congestive heart failure Social History Social History Smoking packs per day: 1 Smoking cigarettes per day: 20.0 Years smoked: 50 Smoking pack-years: 50.00 Smoking status: Current every day smoker Tobacco type: cigarettes Second hand tobacco smoke exposure: Yes Alcohol intake: never Substance use: current Substance use type: prescription drug Other substance usage details: oxycodone 10/325 , methadone Living arrangements: with family Additional living arrangements comments: Occupation/Education: retired Spiritual care concerns: No Exam Narrative: GENERAL: Well-appearing, well-nourished, and in no acute distress. HEAD: Normocephalic, atraumatic. EYES: PERRLA and EOMI. ENT: Nares clear, no rhinorrhea or epistaxis. Mucous membranes moist. Oropharynx without tonsillar hypertrophy exudate or other lesions. NECK: Supple. No adenopathy or masses. CHEST: No respiratory distress. Clear to auscultation. No wheezes rales or rhonchi HEART: Regular rate and rhythm. No murmur heard. Normal peripheral pulses. ABDOMEN: Soft, nontender, nondistended, normal active bowel sounds. MSK: Normal range of motion. No edema. Ambulatory. Neurovascularly intact distally. Soft compartments. SKIN: 10 cm laceration to the mid shaft anterior tibia area. Di
[2023-12-03 18:00] VITALS: BP 140/78; PULSE 78; RESP 16; TEMP 36.8; O2SAT 98
[2023-12-03] MEDS: TETANUS,DIPHTHERIA,AC PERTUSSIS ADULT (0.5 ML) BOOSTRIX (18:34)
[2023-12-03 18:43] LABS: Basophils Absolute Auto 0.1 K/mm3 (0.0-0.1); Basophils Percent Auto 0.8 % (0.2-1.2); Eosinophils Absolute Auto 0.3 K/mm3 (0-0.3); Eosinophils Percent Auto 3.2 % (0-4.4); Hematocrit 38.7 % (42.0-52.0); Hemoglobin 12.6 g/dL (14.0-18.0); Immature Granulocyte Absolute 0.03 K/mm3 (0.00-0.031); Immature Granulocyte Percent A 0.3 % (0-0.5); Lymphocytes Percent Auto 20.7 % (18.3-44.2); Mean Corpuscular HGB Conc 32.6 g/dl (32-36); Mean Corpuscular Hemoglobin 33.1 pg (26-34); Mean Corpuscular Volume 101.6 fl (80-100); Mean Platelet Volume 11.4 fl (7.4-10.4); Monocytes Absolute Auto 0.4 K/mm3 (0.1-0.6); Monocytes Percent Auto 4.7 % (2.6-8.5); Neutrophils Absolute Auto 6.5 K/mm3 (1.3-6.7); Neutrophils Percent Auto 70.3 % (45.5-73.1); Platelet Count Result 195 k/mm3 (150-375); Red Blood Count 3.81 M/mm3 (4.6-6.20); Red Cell Distribution Width 13.4 % (11.5-14.5); White Blood Count 9.2 K/mm3 (4.5-10.0)
[2023-12-03 18:44] LABS: Estimated CRCL calculation 50 ml/min; Estimated Glomerular Filt Rate 60
[2023-12-03 18:51] LABS: Prothrombin Time 13.6 Seconds (11.1-14.7)
[2023-12-03 18:52] LABS: Partial Thromboplastin Time 30.4 SECONDS (22.3-36.8)
[2023-12-03 19:08] LABS: Alanine Aminotransferase 10 U/L (6-50); Albumin Level 4.2 g/dL (3.5-5.1); Alkaline Phosphatase 54 U/L (38-126); Anion Gap 6 mmol/L (8-16); Aspartate Amino Transferase 24 U/L (17-59); Bilirubin,Total 0.5 mg/dL (0.2-1.3); Blood Urea Nitrogen 23 mg/dL (9-20); Calcium 9.4 mg/dL (8.4-10.2); Carbon Dioxide 29 mmol/L (22-30); Chloride 105 mmol/L (98-107); Estimated CRCL calculation 59 ml/min; Estimated Glomerular Filt Rate > 60; Glucose 185 mg/dL (65-110); Potassium 4.8 mmol/L (3.4-5.0); Sodium 140 mmol/L (137-145)
[2023-12-03] MEDS: CEPHALEXIN 500 MG CAPSULE PO (20:24)
[2023-12-03 20:27] VITALS: BP 138/86; PULSE 78; RESP 15; O2SAT 100
== END 2023-12-03 20:28 | disposition home or self-care (01) ==
PROVIDERS: Emergency Provider Physician Assistant; PCP Internal Medicine
DX: S81.811A Laceration without foreign body, right lower leg, initial encounter (principal); E78.5 Hyperlipidemia, unspecified; E11.9 Type 2 diabetes mellitus without complications; I25.10 Atherosclerotic heart disease of native coronary artery without angina pectoris; I25.2 Old myocardial infarction; F17.210 Nicotine dependence, cigarettes, uncomplicated; Z23 Encounter for immunization; Z79.82 Long term (current) use of aspirin; Z86.73 Personal history of transient ischemic attack (TIA), and cerebral infarction without residual deficits; W01.118A Fall on same level from slipping, tripping and stumbling with subsequent striking against other sharp object, initial encounter
CPT/HCPCS: 12004; 36415; 73701; 80053; 85025; 85610; 85730; 90471; 90715; 99284; A9270; Q9967

== ENCOUNTER 2023-12-15 15:26 | Outpatient (CLI) | payer MEDICARE, SELFPAY ==
--- NOTE | ~2023-12-15 | MR_ITS ---
EXAMINATION: MR lumbar spine wo con DATE: 12/15/2023 16:36 INDICATION: Back pain. Spinal stenosis. 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 TECHNIQUE: Magnetic resonance imaging (MRI) of the lumbar spine was performed without intravenous con trast. Sequences included sagittal T2-weighted FSE, sagittal T2-weighted FS FSE, sagittal T1-weighted FSE, and axial T2-weighted FSE. COMPARISON: Lumbar spine MRI 08/11/2021 FINDINGS: There is 5 degrees dextrocurvature of lumbar spine. There is 3 mm retrolisthesis of L3 on L 4. Vertebral body heights are normal. There is severely decreased disc height at L3-L4 and moderately decreased disc height at L4-L5 and L5-S1. The distal spinal cord signal intensity is normal. The con us medullaris is at L1. There are cysts in the kidneys measuring up to 2.4 cm on the right. The follo wing disc levels are specifically discussed: L1-L2: There is a central protrusion. There is mild bilateral facet joint osteoarthritis. There is no neural foraminal stenosis. There is mild central canal stenosis. L2-L3: The disc is bulging. There is mild bilateral facet joint osteoarthritis. There is mild bilater al neural foraminal stenosis. There is mild central canal stenosis. L3-L4: The disc is bulging and has an annular fissure. There is severe right and moderate left facet joint osteoarthritis. There is mild right and moderate left neural foraminal stenosis. There is mild central canal stenosis. L4-L5: The disc is bulging. There is severe bilateral facet joint osteoarthritis. There is moderate b ilateral neural foraminal stenosis. There is mild central canal stenosis. L5-S1: The disc is bulging and has an annular fissure. There is severe right and moderate left facet joint osteoarthritis. There is moderate bilateral neural foraminal stenosis. There is mild central ca nal stenosis. IMPRESSION: 1. Severe lumbar spondylosis, worsened from 08/11/2021. Reviewed, dictated and finalized at location A.
--- NOTE | ~2023-12-15 | MR_ITS ---
EXAMINATION: MR cervical spine wo con DATE: 12/15/2023 16:36 INDICATION: Neck pain. TECHNIQUE: Magnetic resonance imaging (MRI) of the cervical spine was performed without intravenous c ontrast. Sequences included sagittal T2-weighted FSE, sagittal T2-weighted FS FSE, sagittal T1-weight ed FSE, axial MERGE, and axial T2-weighted FSE. COMPARISON: Cervical spine MRI 11/26/2011 FINDINGS: There is 6 degrees dextrocurvature of cervical spine. There is mild chronic anterior wedgin g of C6, C7, and T1 vertebral bodies. There is mildly decreased disc height at C5-C6 and C6-C7. The s naty cord signal intensity is normal. The following disc levels are specifically discussed: C2-C3: There is a central protrusion. There is no uncovertebral joint osteoarthritis. There is mild r ight and severe left facet joint osteoarthritis. There is mild left neural foraminal stenosis. There is no central canal stenosis. C3-C4: There is a central protrusion. There is no uncovertebral joint osteoarthritis. There is severe left facet joint osteoarthritis. There is mild left neural foraminal stenosis. There is no central c anal stenosis. C4-C5: There is a central extrusion. There is mild bilateral uncovertebral joint osteoarthritis. Ther e is mild right facet joint osteoarthritis. There is no neural foraminal stenosis. There is mild cent ral canal stenosis. C5-C6: There is a central extrusion. There is mild bilateral uncovertebral joint osteoarthritis. Ther e is mild bilateral facet joint osteoarthritis. There is no neural foraminal stenosis. There is mild central canal stenosis. C6-C7: The disc is bulging with superimposed left central extrusion. There is mild right and moderate left uncovertebral joint osteoarthritis. There is moderate and severe left facet joint osteoarthriti s. There is mild bilateral neural foraminal stenosis. There is mild central canal stenosis. C7-T1: The disc does not extend beyond the endplate margin. There is no uncovertebral joint osteoarth ritis. There is moderate bilateral facet joint osteoarthritis. There is mild bilateral neural foramin al stenosis. There is no central canal stenosis. IMPRESSION: 1. Mild cervical spondylosis. Reviewed, dictated and finalized at location A.
== END 2023-12-15 15:27 | disposition home or self-care (01) ==
PROVIDERS: PCP Internal Medicine
DX: M47.817 Spondylosis without myelopathy or radiculopathy, lumbosacral region (principal); M43.06 Spondylolysis, lumbar region; M43.02 Spondylolysis, cervical region
CPT/HCPCS: 72141; 72148